=== PATIENT | male | born 1940 | race Caucasian/White ===

== ENCOUNTER 2019-04-02 07:01 | Day surgery (SDC) | payer MEDICARE, BC ==
[2019-04-01 12:21] VITALS: BMI 25.8
[2019-04-02] MEDS ORDERED: Heparin (Artline) 1,000 ML ONE (08:54)
[2019-04-02] MEDS ORDERED: Midazolam HCl 2 mg/2 ml Vial ONE (09:52)
[2019-04-02] MEDS ORDERED: Fentanyl 100 MCG/2 ML VIAL ONE (09:53)
[2019-04-02] MEDS ORDERED: hydrALAZINE 20 MG/ML VIAL ONE (11:02)
[2019-04-02] MEDS ORDERED: Iopamidol 370 76% 100 ML VIAL ONE (13:11)
--- NOTE | 2019-04-02 20:30 | CON ---
DATE OF CONSULTATION: 04/02/2019 REQUESTING PHYSICIAN: Dr. Moreno. PRIMARY CARE PHYSICIAN: Irene Blount NP CHIEF COMPLAINT: Shortness of breath and indigestion. HISTORY OF PRESENT ILLNESS: The patient is 78-year-old diabetic man with chronic atrial fibrillation. The patient complains of dyspnea on exertion. His caregiver says that he quite easily gets winded and has been like that for about 2 years. The patient upon questioning says that he has gotten short of breath all of his life and then proceeded to talk about how even in high school running track he had to run the sprint races because his breathing was not good enough to run the long-distance races. I was not able to elicit any more details about his shortness of breath or any changes in his exercise tolerance over the years. He denied any chest pain, pressure, squeezing, or discomfort, but does describe frequent indigestion. He is not able to identify any particular pattern of precipitating symptoms other than relating it to when he eats. He had a nuclear stress test that showed a large reversible defect in the inferior wall at stress. His resting EF was calculated at 52%, stress at 54%. Cardiac catheterization today demonstrated the equivalent of three-vessel coronary disease. He has diminutive circumflex with a very high diagonal that appears free of disease serving the anterolateral distribution and a very severely diseased right coronary system that supplies both the inferior wall and the posterolateral distribution. Additionally, he has serial LAD lesions. He has preserved left ventricular function. PATIENT'S PAST MEDICAL HISTORY: Significant for chronic atrial fibrillation, type 2 diabetes mellitus, hypertension, and peripheral vascular disease. MEDICATIONS: His home medications are 1. Lisinopril 40 mg a day. 2. Metformin 500 mg b.i.d. 3. Diltiazem ER 240 mg a day. 4. Lipitor 40 mg a day. 5. Protonix 40 mg a day. 6. Eliquis 10 mg b.i.d. 7. Multivitamin. 8. Vitamin D supplement. 9. A probiotic. ALLERGIES: HE DENIES ANY MEDICAL ALLERGIES. SOCIAL HISTORY: He has never smoked. FAMILY HISTORY: Significant for second-degree relatives on his mother's side with heart disease. His father of an unknown cancer. REVIEW OF SYSTEMS: Positive for dizziness. He had a syncopal episode associated with dizziness about 2-1/2 years ago at which time he was found to have bilateral carotid stenosis and underwent staged bilateral carotid endarterectomies at that time. His dizziness has remained, although he has not had any further syncopal episodes. He denies any eye, speech, facial, or extremity symptoms consistent with TIAs. He reports some drooping of his left eyelid following carotid surgery. He reports some diminished visual acuity in his left eye. He reports some shooting pain starting in his left elbow and extending along the extensor surface of his forearm on the left side that he attributes to "pinched nerve." He has a vaguely positive answer when questioning about the legs bothering him when he walks. He denies specifically crampy calf, thigh or buttock pain. He reports the aforementioned shortness of breath his entire life, but he denies orthopnea or PND. He denies any dependent edema. He reports indigestion but denies true chest pain, pressure or squeezing. PHYSICAL EXAMINATION: GENERAL: He is somewhat diogo faced. Height 5 feet 10 inches and weight is 180 pounds, heart rate 77, blood pressure 185/111. HEENT: He has no xanthelasma. NECK: No JVD. No carotid bruits. He has well-healed surgical scars paralleling his sternocleidomastoids consistent with bilateral CEAs. LUNGS: He has clear breath sounds. HEART: He has an irregularly irregular rate and rhythm without murmur. ABDOMEN: Soft and nontender. EXTREMITIES: He has a dressing in place in the right groin status post cardiac catheterization. He has bounding bilateral radial, left femoral and bilateral popliteal pulses. He has 1 to 2+ left dorsalis pedis pulse. I was not able to appreciate either posterior tibial or the right dorsalis pedis. He has some varicosities of the spidery type at the ankles. He has no clubbing, cyanosis, or edema. NEUROLOGIC: Grossly nonfocal. LABORATORY DATA: Shows a white count of 8.5, hemoglobin 15.3, hematocrit 46.1, platelets 179,000. Chemistries were normal. Glucose 142, BUN 22, creatinine 1.24 with an estimated GFR 57 in January of this year. His BUN is 39, creatinine 1.54 for an estimated GFR of 44. Hemoglobin A1c at that time was 6.5. Last summer in October his BUN was 27, creatinine 1.58 for an estimated GFR of 43. On this encounter, his calcium is 9.8, protein 6.4, albumin 4.4, bilirubin 0.8, alkaline phosphatase 67, AST 13, ALT 11, triglycerides 84, cholesterol 124, LDL 67, HDL 39. His urinalysis this past January showed 50 mg% proteinuria and although he did not tell me about any issue with kidney stones, I found a kidney stone analysis in the laboratory section. I was not able to find a chest x-ray on him or an EKG. His EKG is reported as atrial fibrillation. His cardiac catheterization shows a right-dominant system. His left main is normal. His circumflex system per se is very small with some irregularity to it, but no obviously obstructing disease. He has a very large high diagonal that functionally runs in ramus type distribution. He has an 80% or 90% lesion in the LAD in between the first septal benefits specialist recruiter and the second diagonal with the subtotaled stenosis in the origin of that bifurcated diagonal. Little beyond that, there is about a 60% LAD lesion and the LAD wraps on around the apex. The right coronary has a very high-grade ostial lesion in it. There is an 80% or 90% lesion in the midportion of the PDA and a 60% or 70% lesion prior to the bifurcation of the posterolateral system. It is a fairly well-developed system. LVEF is around 70% with LV pressure being 143/19 with an EDP of 9. IMPRESSION AND RECOMMENDATIONS: The patient is a very difficult historian. I was not able to elicit any transient ischemic attack history other than this syncopal episode he had 2 years ago prior to his endarterectomies that he acquitted with a transient ischemic attack; however, he has not had his scheduled carotid followup during that time and I think it would be worth going ahead and checking that now for no other reason than to get him re-enrolled in annual surveillance. It is difficult to point to any statistics that would categorize him as having a survival advantage to bypass surgery. However, his dyspnea on exertion, his "indigestion," his large inferior wall defect on stress testing and his right coronary anatomy all fit together and it is hard to imagine that he would not symptomatically improve with bypass surgery and have improved quality of life, even if not quantity. Of course , I cannot say that with certainty because of how well adamantly he insists he has been short of breath all of his life. My plan is to let him go ahead and restart his Eliquis now. We will recheck a carotid ultrasound at his convenience in the next week or so and then early in the new year at mutual convenience plan on coronary artery bypass grafting. Job ID: [id number]
== END 2019-04-02 13:22 | disposition home or self-care (01) ==
LOC: SDC 07:01
PROVIDERS: ATTEND Internal Medicine Cardiovascular Disease
PROC: 4A023N7 Measurement of Cardiac Sampling and Pressure, Left Heart, Percutaneous Approach (ICD-10-PCS; principal; 2019-04-02)
PROC: B2111ZZ Fluoroscopy of Multiple Coronary Arteries using Low Osmolar Contrast (ICD-10-PCS; 2019-04-02)
DX: I25.84 Coronary atherosclerosis due to calcified coronary lesion (principal); K30 Functional dyspepsia; I48.20 Chronic atrial fibrillation, unspecified; E11.9 Type 2 diabetes mellitus without complications; I10 Essential (primary) hypertension; I25.10 Atherosclerotic heart disease of native coronary artery without angina pectoris; I73.00 Raynaud's syndrome without gangrene; Z79.01 Long term (current) use of anticoagulants; Z79.84 Long term (current) use of oral hypoglycemic drugs; Z79.899 Other long term (current) drug therapy
CPT/HCPCS: 93005; 93458; C1769; 93010; 99152; J0360; J1644; J2250; J3010; Q9967

== ENCOUNTER 2019-04-20 09:54 | Outpatient (CLI) | payer MEDICARE, BC ==
--- NOTE | 2019-04-20 17:49 | RAD ---
CHEST TWO VIEWS: HISTORY: Preoperative evaluation. COMPARISON: 07/06/2015 FINDINGS: The cardiac silhouette is at the upper limits of normal in size. The pulmonary vasculature is within normal limits. Mild linear densities are seen at the right lung base, which may be related to mild at electasis versus scarring. There is no consolidation or pleural fluid appreciated. No other interval change. Surgical clips are seen at the base of the neck bilaterally. IMPRESSION: 1. No acute cardiopulmonary process. 2. Mild scarring versus atelectasis, right lung base. POS: [facility]
--- NOTE | 2019-04-21 11:11 | EKG ---
Test Reason : Blood Pressure : / mmHG Vent. Rate : 088 BPM Atrial Rate : 108 BPM P-R Int : 000 ms QRS Dur : 084 ms QT Int : 358 ms P-R-T Axes : 000 038 -20 degrees QTc Int : 433 ms Atrial fibrillation Minimal voltage criteria for LVH, may be normal variant Inferior infarct , age undetermined Cannot rule out Anterior infarct , age undetermined Abnormal ECG When compared with ECG of 02-APR-2019 08:08, (Unconfirmed) Inferior infarct is now Present Nonspecific T wave abnormality now evident in Anterior leads Confirmed by DR. Yareli ACOSTA ([id number]) on 04/21/2019 11:11:10 AM Referred By: BETH Confirmed By:DR. Yareli ACOSTA
== END 2019-04-20 09:55 | disposition home or self-care (01) ==
LOC: LABBT 09:54
PROVIDERS: ATTEND Thoracic Surgery (Cardiothoracic Vascular Surgery)
DX: Z01.818 Encounter for other preprocedural examination (principal); I25.10 Atherosclerotic heart disease of native coronary artery without angina pectoris
CPT/HCPCS: 71046; 93005; 93010

== ENCOUNTER 2019-04-20 15:30 | Inpatient (IN) | payer MEDICARE, BC ==
[2019-04-20 16:46] LABS: Hemoglobin 15.5 g/dL (14.0-18.0); Mean Corpuscular HGB CONC 32.8 g/dL (32.0-36.0); Mean Corpuscular Hemoglobin 30.5 pg (27.0-31.0); Mean Platelet Volume 9.5 fL (7.4-10.4); Platelet Count 198 thou/uL (130-400); RBC Distribution Width 12.1 % (11.5-14.5); White Blood Cell (WBC) Count 13.1 thou/uL (4.8-10.8)
[2019-04-20 17:20] LABS: Anion Gap 14 mmol/L (10-20); BUN (Urea Nitrogen) 23 mg/dL (8.4-25.7); Calc. Creatinine Clearance 0 mL/min (70-130); Calcium 9.7 mg/dL (7.8-10.44); Carbon Dioxide 28 mmol/L (23-31); Chloride 105 mmol/L (98-107); Estimated GFR-MDRD 50; Glucose 112 mg/dL (83-110); Potassium 3.8 mmol/L (3.5-5.1); Sodium 143 mmol/L (136-145)
[2019-04-21] MEDS ORDERED: Midazolam HCl 2 mg/2 ml Vial ONE (06:35)
[2019-04-21] MEDS ORDERED: Dexmedetomidine 200 MCG/2 ML VIAL ONE (06:35)
[2019-04-21] MEDS ORDERED: Fentanyl 100 MCG/2 ML VIAL ONE (06:35)
[2019-04-21] MEDS ORDERED: Phenylephrine HCL 10 MG/ML VIAL ONE (06:35)
[2019-04-21] MEDS ORDERED: Albumin 5% 500 ML ONE ×2 (06:39→07:09)
[2019-04-21] MEDS ORDERED: Heparin 10,000 UNITS/1 ML VIAL 30,000 UNITS in Sodium Chloride 0.9% 1,000 ML FS SCH (06:45)
[2019-04-21] MEDS ORDERED: Insulin Regular 300 UNITS/3 ML VIAL ONE (07:09)
[2019-04-21] MEDS ORDERED: Guaifenesin DM 100-10/5 ML UDCUP PO PRN (07:29)
[2019-04-21] MEDS ORDERED: Mag-Al 1200 mg/1200 mg/30 ML UDCUP PO PRN (07:29)
[2019-04-21] MEDS ORDERED: Bisacodyl 10 MG SUPP PR PRN (07:29)
[2019-04-21] MEDS ORDERED: hydrALAZINE 20 MG/ML VIAL SLOW IVP PRN (07:29)
[2019-04-21] MEDS ORDERED: HYDROcodone/Acetaminophen 5/325 mg Tablet PO PRN (07:29)
[2019-04-21] MEDS ORDERED: Hetastarch 6% 500 ML 500 ML IVPB PRN (07:29)
[2019-04-21] MEDS ORDERED: Post-Op Insulin Drip Protocol IVPB ONE (07:29)
[2019-04-21] MEDS ORDERED: Promethazine HCl 25 MG/ML VIAL IM PRN (07:29)
[2019-04-21] MEDS ORDERED: Bisacodyl 5 MG TAB PO PRN (07:29)
[2019-04-21] MEDS ORDERED: Fentanyl 100 MCG/2 ML VIAL SLOW IVP PRN (07:29)
[2019-04-21] MEDS ORDERED: Nitroglycerin 50 MG/250 ML BOT 250 ML IVPB PRN (07:29)
[2019-04-21] MEDS ORDERED: Morphine 2 MG/ML SYRINGE SLOW IVP PRN (07:29)
[2019-04-21] MEDS ORDERED: niCARdipine 25 MG in Sodium Chloride 0.9% 250 ML 250 ML IVPB PRN (07:29)
[2019-04-21] MEDS ORDERED: Norepinephrine 8 MG/0.9% NS 250 ML IVPB PRN (07:29)
[2019-04-21] MEDS ORDERED: Acetaminophen 325 MG TAB PO PRN (07:29)
[2019-04-21] MEDS ORDERED: Insulin Regular 300 UNITS/3 ML VIAL SC PRN (07:54)
[2019-04-21] MEDS ORDERED: HUMULIN R 100 UNITS in Sodium Chloride 0.9% 100 ML IVPB SCH (07:54)
[2019-04-21] MEDS ORDERED: Dextrose 5% in Water 1,000 ML IV PRN (07:54)
[2019-04-21] MEDS ORDERED: Dextrose 50% Abboject 50 ML SYRINGE SLOW IVP PRN (07:54)
[2019-04-21] MEDS ORDERED: Protamine Sulfate 250 MG/25 ML VIAL ONE (09:53)
[2019-04-21] MEDS ORDERED: Rocuronium Bromide 10 MG/ML (10ML VIAL) ONE (09:53)
[2019-04-21] MEDS ORDERED: Heparin 30,000 units/30 ml VIAL ONE (09:53)
[2019-04-21] MEDS ORDERED: Heparin 5,000 UNITS/ML VIAL ONE (09:53)
[2019-04-21] MEDS ORDERED: Potassium Chloride 60 MEQ/30 ML VIAL ONE (09:53)
[2019-04-21] MEDS ORDERED: Magnesium Sulfate 1 GM/2 ML VIAL ONE (09:53)
[2019-04-21] MEDS ORDERED: Cardioplegic Soln 1,000 ML BAG ONE (09:53)
[2019-04-21] MEDS ORDERED: Esmolol 100 MG/10 ML VIAL ONE (09:53)
[2019-04-21] MEDS ORDERED: Sodium Bicarb 50 MEQ/50 ML Abboject 8.4% SYRINGE ONE (09:53)
[2019-04-21] MEDS ORDERED: Papaverine 60 MG/2 ML VIAL ONE (09:53)
[2019-04-21] MEDS ORDERED: Lidocaine 1% PF 5 ML VIAL ONE (09:53)
[2019-04-21] MEDS ORDERED: ePHEDrine/0.9% NaCl/PF SYRINGE 50 mg/10 ml ONE (09:53)
[2019-04-21] MEDS ORDERED: Nitroglycerin 50 MG/250 ML BOT ONE (09:53)
[2019-04-21] MEDS ORDERED: Thrombin 5000 UNITS/5 ML VIAL ONE (09:53)
[2019-04-21] MEDS ORDERED: Lidocaine 2% PF 5 ML VIAL ONE (09:53)
[2019-04-21] MEDS ORDERED: Calcium Chloride 1 GM/10 ML Abboject SYRINGE ONE (09:53)
[2019-04-21] MEDS ORDERED: Vecuronium 10 MG VIAL ONE (09:53)
[2019-04-21] MEDS ORDERED: PROPOFOL 200 MG/20 ML VIAL ONE (09:53)
[2019-04-21] MEDS ORDERED: Aminocaproic Acid 5 GM/20 ML VIAL ONE (09:53)
[2019-04-21] MEDS: Sodium Chloride 0.9% 1,000 ML IV SCH ×2 (13:55→20:31)
--- NOTE | 2019-04-21 14:10 | RAD ---
EXAM: XR Chest 1 View Portable PROVIDED CLINICAL HISTORY: Post open heart COMPARISON: 04/20/2019 FINDINGS: Interval intubation, with tip of ET tube overlying the expected location of the thoracic inlet. Inter krystin placement of left subclavian central line, with tip overlying the expected location of cavoatrial junction. Mediastinal drains are seen. Left basilar pleural and/or parenchymal opacity. Villavicencio bsegmental atelectasis right lung base. No evidence for pneumothorax with limitations due to the supine nature the study. IMPRESSION: 1. Interval support apparatus as above. 2. Left basilar pleural and/or parenchymal opacity.
[2019-04-21 14:29] LABS: #Basophils 0.1 thou/uL (0.0-0.2); #Eosinphils 0.2 thou/uL (0.0-0.7); #Lymphocytes 2.1 thou/uL (1.20-3.40); #Monocytes 1.5 thou/uL (0.11-0.59); #Neutrophils 14.4 thou/uL (1.40-6.50); %Basophils 0.3 % (0.0-1.0); %Eosinophils 1.1 % (0.0-10.0); %Lymphocytes 11.7 % (21.0-51.0); %Monocytes 8.3 % (0.0-10.0); %Neutrophils 78.6 % (42.0-75.0); Hemoglobin 11.9 g/dL (14.0-18.0); Mean Corpuscular HGB CONC 33.4 g/dL (32.0-36.0); Mean Corpuscular Hemoglobin 30.5 pg (27.0-31.0); Mean Corpuscular Volume 91.3 fL (78.0-98.0); Mean Platelet Volume 9.7 fL (7.4-10.4); Platelet Count 119 thou/uL (130-400); RBC Distribution Width 11.8 % (11.5-14.5); White Blood Cell (WBC) Count 18.3 thou/uL (4.8-10.8)
[2019-04-21 14:33] LABS: Anion Gap 10 mmol/L (10-20); BUN (Urea Nitrogen) 18 mg/dL (8.4-25.7); Calc. Creatinine Clearance 69 mL/min (70-130); Calcium 7.7 mg/dL (7.8-10.44); Carbon Dioxide 24 mmol/L (23-31); Chloride 113 mmol/L (98-107); Estimated GFR-MDRD 70; Glucose 144 mg/dL (83-110); Sodium 143 mmol/L (136-145)
[2019-04-21 14:42] LABS: INR-International Normal Ratio 1.4; PTT 36.5 SEC (22.9-36.1)
[2019-04-21 15:01] LABS: Actual Bicarbonate (HCO3a) 19.2 mEq/L (22-28); Base Excess (BEa) -5.7 mEq/L (-2.0 to +3.0); CO2 Tension 35.8 mmHg (35.0-45.0); Carboxyhemoglobin (COHb) 0.9 gm% (0.0-3.0); Hemoglobin (Hb) 12.6 g/dL (14.0-18.0); O2 Tension (PaO2) 92.5 mmHg (> 70.0); Potassium - ABG Lab 4.11 mmol/L (3.70-5.30); pH, Arterial 7.35 (7.35-7.45)
[2019-04-21 15:02] LABS: Puncture Site ALINE
[2019-04-21] MEDS: Potassium Chloride 20 MEQ/100 ML PREMIX BAG IVPB PRN (15:48)
[2019-04-21] MEDS: Aspirin Chewable 81 MG TAB PO SCH (15:58)
[2019-04-21] MEDS: Docusate 100 MG CAP PO SCH ×2 (16:01→20:32)
[2019-04-21] MEDS: Multivitamin W/ Minerals 1 TAB PO SCH (16:02)
--- NOTE | 2019-04-21 16:31 | OP ---
DATE OF PROCEDURE: 04/21/2019 PROCEDURE PERFORMED: Coronary artery bypass grafting x4 with left internal mammary artery to the mid left anterior descending and separate reverse greater saphenous vein graft from the aorta to the second diagonal and from the aorta to the posterolateral branch of the RCA, and reverse greater saphenous vein graft from the posterolateral graft to the distal posterior descending artery. PREOPERATIVE DIAGNOSES: 1. Coronary artery disease. 2. Chronic atrial fibrillation. POSTOPERATIVE DIAGNOSES: 1. Coronary artery disease. 2. Chronic atrial fibrillation. THERAPEUTIC MASSAGE TECHNICIAN: Pedro Luis Anderson MD ANESTHESIA: General endotracheal anesthesia. INDICATIONS: The patient is a 78-year-old diabetic man with complaints of dyspnea on exertion and some nondescript complaints of dyspepsia. Nuclear stress testing showed a large inferior wall reversible defect. Cardiac catheterization demonstrated severe 2-vessel coronary artery disease. He had a diminutive circumflex system with anterolateral wall supplied by a high diagonal that was free of obstructive disease and the posterolateral wall supplied by diseased posterolateral branch. He is now taken to the operating room for revascularization. FINDINGS: Pump time 107 minutes. Cross-clamp time 43 minutes. The utilized saphenous vein was of good quality towards the mid to distal ankle. The vein though good size was thin-walled. The utilized segment of ASHER was of good quality. It was fairly small distally and at about the transition point between being a large caliber vessel in a small spastic vessel. There was apparently a localized dissection. The LAD was about a 1.5-mm vessel and good quality from there distally. The first diagonal was about a 1.5 mm with vessel scattered islands of plaque. The distal PDA was about a 1.5 mm vessel with heavy disease proximally. The posterolateral branch of the right coronary was of good quality vessel about 2 mm. The pericardium was closed. The left atrial appendage had a very broad base and was opted to not attempt ligating it. NARRATIVE REPORT: After informed consent was obtained, the patient was taken to the operating room, placed in supine position on the operating table. After the induction of general endotracheal anesthesia, the patient's greater saphenous vein in his left lower extremity was ultrasonographically mapped and marked. He was then placed in Trendelenburg and his left upper chest was prepped and draped in sterile fashion. A triple-lumen central line kit was used to place a left subclavian central line by the Seldinger technique. All 3 ports easily aspirated and flushed. The line was secured. The patient's torso, groins, and lower extremities were prepped and draped in sterile fashion. The greater saphenous vein was exposed just above the left knee. He was then endoscopically harvested from groin to about the junction in the middle and distal thirds of the lower leg using stab incisions for the proximal and distal ligation and division points. It was prepared for use as a graft and the port site at the knee was closed in layers of subcutaneous and subcuticular Vicryl. A median sternotomy was performed. The left internal mammary artery was mobilized as a skeletonized in-situ graft from lateral xiphoid to the level of the subclavian vein through an extrapleural exposure, although one small rent was made in the pleura near the level of the xiphoid. The patient was heparinized. The mammary was ligated and divided distally. There was good flow through the mammary. Papaverine solution was instilled intraluminally, and during the course of that extravasation of papaverine, it could be appreciated at about the junction of the proximal portion that had not gone into spasm in the more distal portion that had. When flow was allowed through it after that, it bled profusely. That area was cleaned up with tenotomy scissors and an attempt was made to do a primary repair that proved to be unsuccessful. Upon dividing the mammary at that level, it could be appreciated that there was a localized dissection with entry and re-entry points within just a few millimeters of each other, though somewhat short. The mammary appeared to be of adequate length to be usable as an in-situ graft. The medial reflections of the pleura were mobilized and the mammary bed inspected for hemostasis. The ASHER retractors were replaced with a Cheng retractor. The pericardium was opened and marsupialized. The aorta was palpated and was soft. A double concentric pursestring of 2-0 Ethibond was placed in ascending aorta at the pericardial reflection and a single pursestring was placed in the right atrial appendage. Aortic and venous cannulae were inserted and secured by their pursestrings. The plane between the aorta and the pulmonary artery was developed. Cardiopulmonary bypass was instituted and the patient was systemically cooled. The heart was examined and the vessels to be bypassed were identified. A longitudinal slit was made in the pericardium anterior to the left phrenic nerve, through which the mammary could be passed. An aortic cross-clamp was applied and cardioplegia was administered through an aortic root needle. When arrest was achieved, attention was turned to the left atrial appendage. Upon inspection, it was tensely distended. While it could be decompressed, it was intermediately refilled, it was a very large atrial appendage, and the base of it appeared to be very broad for much of its length perhaps as much as 3 cm. It was opted not to attempt ligation of the atrial appendage because of how broad-based it was, we fear that difficulties with passing a standard SH needle would lead to tears or needle holes that would lead to bleeding problems. Attention was then turned to the distal right coronary system. The posterolateral branch was exposed and opened just beyond an island of plaque that seemed to represent the obstructive lesion, demonstrated the arteriogram. Reverse greater saphenous vein was anastomosed their end-to-side with running Prolene suture and the anastomosis tested by flushing cold cardioplegia down the graft. Attention was then turned to the PDA. It was opened distally and grafted in a similar fashion. The second diagonal was then grafted likewise and then the LAD was exposed and opened at its mid point a little bit beyond the origin of that 2nd diagonal, where it became a reasonably good quality vessel. The mammary was anastomosed there with running 7-0 Prolene and tacked to the epicardium. The aortic cross-clamp was placed with a partial occluding clamp and 2 aortotomies were made in the ascending aorta with a scalpel and punch. The posterolateral graft was brought along the right side of the heart and anastomosed to the more proximal aortotomy and the diagonal graft was brought along the left side of the heart and anastomosed to the more distal aortotomy. Partial occluding clamp was removed and the vein grafts were de-aired. The PDA graft was distended and a point on the posterolateral graft about 3 cm or so beyond the proximal anastomosis was selected for proximal anastomosis, that segment of posterolateral graft was isolated between bulldog clamps and opened longitudinally and the posterior descending graft was anastomosed their end-to-side with running Prolene. The bulldogs were removed and the vein grafts de-aired. The anastomoses were inspected for hemostasis. The posterior pericardial drain was brought out through a separate incision and secured with suture. Right ventricular temporary epicardial pacing wires were placed. The patient was then from cardiopulmonary bypass. The aortic and venous cannulae were removed and the pursestring secured. Protamine was administered. When hemostasis was adequate, an anterior mediastinal drain was placed. The pericardium was easily closed over with running Vicryl. The cut surfaces of the sternum were treated with platelet rich GPS and vancomycin paste. The fascia was closed over the wires with running Vicryl after having irrigated the soft tissues with saline and then applied platelet poor GPS. The subcutaneous tissue was reapproximated with running 2-0 Vicryl. The skin was closed with a running 3-0 Vicryl subcuticular suture. The wounds were dressed and the patient was taken to the intensive care unit in stable condition. Job ID: [id number]
[2019-04-21] MEDS: Fentanyl 100 MCG/2 ML VIAL SLOW IVP PRN ×2 (16:55→20:47)
[2019-04-21 17:46] LABS: Actual Bicarbonate (HCO3a) 18.2 mEq/L (22-28); Base Excess (BEa) -7.5 mEq/L (-2.0 to +3.0); CO2 Tension 37.7 mmHg (35.0-45.0); Calcium, Ionized 1.09 mmol/L (1.12-1.30); Carboxyhemoglobin (COHb) 0.8 gm% (0.0-3.0); Hemoglobin (Hb) 12.1 g/dL (14.0-18.0); O2 Tension (PaO2) 117.1 mmHg (> 70.0); Potassium - ABG Lab 4.65 mmol/L (3.70-5.30)
[2019-04-21 17:48] LABS: ALV-art Gradient 120.975 (0-20); Puncture Site ALINE
[2019-04-21] MEDS ORDERED: Sodium Bicarb 50 MEQ/50 ML VIAL IVP SCH (18:15)
--- NOTE | 2019-04-21 18:27 | CON ---
DATE OF CONSULTATION: 04/21/2019 REASON FOR CONSULTATION: Status post CABG. PRIMARY APARTMENT HOTEL MANAGER: Dr. Steven Moreno. HISTORY OF PRESENT ILLNESS: Mr. Naidu is a very pleasant 78-year-old white gentleman, who comes to the hospital for a planned CABG. He is one of my patients I have been following for atrial fibrillation for many years now. He has chronic shortness of breath, but he started noticing a lot of indigestion recently, so he had a repeat stress test. He had one last in 2017, which was normal. Stress recently showed inferior ischemia, so he underwent heart catheterization that showed severe multivessel disease. He underwent CABG x4 earlier today. On my evaluation, he remains intubated, but is wide awake, following commands, on CPAP trial. Hopefully, he will get extubated pretty soon. PAST MEDICAL HISTORY: 1. Hypertension. 2. Chronic atrial fibrillation. 3. Carotid artery stenosis, status post endarterectomies in the past. 4. Peripheral vascular disease. 5. Raynaud phenomenon. 6. Coronary artery disease as above. 7. Chronic dizziness. 8. Type-2 diabetes. PAST SURGICAL HISTORY: 1. CABG x4 as above. He had a GUEVARA to the LAD. He had a separate vein graft to the second diagonal and another vein graft to the posterolateral branch of the right and Y graft from the posterolateral branch vein graft to the posterior descending artery on the right. Left atrial appendage was too large to be ligated. 2. Right ear surgery. 3. Right leg surgery. OUTPATIENT MEDICATIONS: 1. Diltiazem 240 mg a day. 2. Eliquis 5 mg b.i.d. 3. Pantoprazole 40 mg a day. 4. Lisinopril 40 mg a day. 5. Metformin 500 mg b.i.d. 6. Atorvastatin 40 mg at bedtime. ALLERGIES: NO KNOWN DRUG ALLERGIES. FAMILY HISTORY: No early coronary artery disease. SOCIAL HISTORY: Some alcohol use. No tobacco or drug use. REVIEW OF SYSTEMS: Review of systems is unobtainable as the patient is currently intubated. PHYSICAL EXAMINATION: VITAL SIGNS: Temperature 97.7, pulse 65, respiratory rate 24, saturating 99% on 24% FiO2. GENERAL: Awake and alert, intubated, following commands. HEENT: Normocephalic, atraumatic. NECK: Supple. LUNGS: Clear. CARDIOVASCULAR: S1, S2. No S3 or S4. There is a three-component rub. ABDOMEN: Soft. Positive bowel sounds. EXTREMITIES: Trace edema. SKIN: Warm and dry. LABORATORY DATA: Laboratory work was reviewed. CBC, coags, ABG, and chemistries were all reviewed. ASSESSMENT: 1. Multivessel coronary artery disease. 2. Status post CABG x4 as above. 3. Type-2 diabetes. 4. Hyperlipidemia. 5. Hypertension. 6. Chronic atrial fibrillation. PLAN: 1. Unable to do left atrial appendage ligation, given too large based left atrial appendage. We will need to continue Eliquis chronically. 2. Continue postoperative care. 3. Hopefully, will get extubated pretty soon as he is doing very well with his CPAP trial. 4. Aspirin and statin for life. 5. Beta-malcom and JACKSON inhibitor once blood pressure allows in the next few days. Thank you for letting us participate in the care of your patient. We will follow. Job ID: [id number]
[2019-04-21 19:52] LABS: Hemoglobin 10.9 g/dL (14.0-18.0)
[2019-04-21 20:05] LABS: Potassium 4.6 mmol/L (3.5-5.1)
[2019-04-21] MEDS: Atorvastatin Calcium 40 MG TAB PO SCH (20:32)
[2019-04-21] MEDS: Lactinex Tablet PO SCH (20:33)
[2019-04-21] MEDS: HYDROcodone/Acetaminophen 5/325 mg Tablet PO PRN (21:32)
[2019-04-21] MEDS: Ondansetron PF 4 MG/2 ML Vial IVP PRN (21:32)
[2019-04-22] MEDS: Fentanyl 100 MCG/2 ML VIAL SLOW IVP PRN ×4 (00:28→23:05)
[2019-04-22] MEDS: Sodium Chloride 0.9% 1,000 ML IV SCH (02:20)
[2019-04-22 03:22] LABS: #Lymphocytes 1.1 thou/uL (1.20-3.40); #Monocytes 1.6 thou/uL (0.11-0.59); #Neutrophils 8.3 thou/uL (1.40-6.50); %Basophils 0.3 % (0.0-1.0); %Eosinophils 0.1 % (0.0-10.0); %Monocytes 14.5 % (0.0-10.0); %Neutrophils 75.2 % (42.0-75.0); Hemoglobin 10.6 g/dL (14.0-18.0); Mean Corpuscular HGB CONC 33.8 g/dL (32.0-36.0); Mean Corpuscular Volume 91.9 fL (78.0-98.0); Mean Platelet Volume 9.5 fL (7.4-10.4); Platelet Count 107 thou/uL (130-400); RBC Distribution Width 11.9 % (11.5-14.5)
[2019-04-22 03:41] LABS: Anion Gap 10 mmol/L (10-20); BUN (Urea Nitrogen) 21 mg/dL (8.4-25.7); Calc. Creatinine Clearance 67 mL/min (70-130); Calcium 7.8 mg/dL (7.8-10.44); Carbon Dioxide 26 mmol/L (23-31); Chloride 112 mmol/L (98-107); Estimated GFR-MDRD 68; Glucose 113 mg/dL (83-110); Sodium 144 mmol/L (136-145)
[2019-04-22] MEDS: Potassium Chloride 20 MEQ/100 ML PREMIX BAG IVPB PRN (03:56)
[2019-04-22] MEDS ORDERED: Dextrose 50 % In Water 50 ML SYRINGE IV PRN (06:48)
[2019-04-22] MEDS ORDERED: Dextrose 5% in Water 1,000 ML IV PRN ×2 (06:48→07:30)
[2019-04-22] MEDS ORDERED: Artificial Tears 18 DROP/0.9 ML EA EYE PRN (07:26)
[2019-04-22] MEDS ORDERED: Mag-Al 1200 mg/1200 mg/30 ML UDCUP PO PRN (07:26)
[2019-04-22] MEDS ORDERED: Guaifenesin DM 100-10/5 ML UDCUP PO PRN (07:26)
[2019-04-22] MEDS ORDERED: Zolpidem Tartrate 5 MG TAB PO PRN (07:26)
[2019-04-22] MEDS ORDERED: diphenhydrAMINE 25 MG CAP PO PRN (07:26)
[2019-04-22] MEDS ORDERED: Bisacodyl 10 MG SUPP PR PRN (07:26)
[2019-04-22] MEDS ORDERED: Mineral Oil ENEMA PR PRN (07:26)
[2019-04-22] MEDS ORDERED: Dextrose 50% Abboject 50 ML SYRINGE IVP PRN (07:30)
[2019-04-22] MEDS ORDERED: Insulin Regular 300 UNITS/3 ML VIAL SC PRN (07:30)
[2019-04-22] MEDS: HYDROcodone/Acetaminophen 5/325 mg Tablet PO PRN (07:58)
--- NOTE | 2019-04-22 07:59 | RAD ---
Chest one view HISTORY: Heart surgery. Follow-up. COMPARISON: 04/21/2019. FINDINGS: Cardiac silhouette is magnified and enlarged. Pulmonary vasculature remains slightly engorg ed. Postoperative atelectasis at the left base and scattered patchy areas of very subtle parenchymal opacity are similar in appearance to the previous exam. Mediastinum is midline with posto perative changes. Left subclavian central venous catheter remains in place. Endotracheal catheter no longer visible. No evidence of pneumothorax. Mediastinal drains in place. pvc monitor leads ov erlie the chest. IMPRESSION: Extubation. Otherwise stable postoperative appearance of the chest.
[2019-04-22] MEDS: Furosemide 40 MG TAB PO SCH ×2 (08:00→14:30)
[2019-04-22] MEDS: Docusate 100 MG CAP PO SCH ×2 (08:01→20:01)
[2019-04-22] MEDS: Multivitamin W/ Minerals 1 TAB PO SCH ×2 (08:01→08:11)
[2019-04-22] MEDS: Aspirin Chewable 81 MG TAB PO SCH (08:01)
[2019-04-22] MEDS: Ondansetron PF 4 MG/2 ML Vial IVP PRN ×3 (09:15→21:06)
[2019-04-22] MEDS: Amiodarone 450 MG, Admixture Fee 1 EACH in Dextrose 5% in Water 250 ML IVPB SCH ×2 (10:41→16:50)
[2019-04-22] MEDS ORDERED: Furosemide 40 MG/4 ML VIAL SLOW IVP SCH (10:45)
[2019-04-22] MEDS ORDERED: Fentanyl 100 MCG/2 ML VIAL SLOW IVP PRN ×2 (15:09→15:25)
--- NOTE | 2019-04-22 18:01 | PDOC.CPN ---
- Subjective Date: 04/22/19 Time: 17:58 Interval history: He became SOB this morning and we gave a dose of IV Lasix and he diuresed very well and felt better. His afib also went RVR and had to be started on amiodarone drip with better rate control. He is having a hard time moving secretions. He is having a lot more pain on neck and shoulders which is a chronic pain for him. - Review of Systems General: denies: fever/chills, weight/appetite/sleep changes, night sweats, fatigue Respiratory: reports: cough, shortness of breath. denies: congestion, exercise intolerance Cardiovascular: reports: edema. denies: chest pain, palpitation, paroxysmal nocturnal dyspnea, orthopnea Gastrointestinal: denies: nausea, vomiting, diarrhea, constipation, abd pain, GI bleeding Musculoskeletal: reports: pain. denies: tenderness, stiffness, swelling, arthritis/arthralgias Neurological: denies: numbness, syncope, seizure, weakness - Objective Allergies/Adverse Reactions: Allergies Allergy/AdvReac Type Severity Reaction Status Date / Time No Known Allergies Allergy Verified 04/20/19 15:43 Visit Medications: Current Medications Hydrocodone Bitart/Acetaminophen ([place] 5/325) 1 tab PO Q4H PRN PRN Reason: Moderate Pain (4-6) Hydrocodone Bitart/Acetaminophen ([place] 5/325) 2 tab PO Q4H PRN PRN Reason: Severe Pain (7-10) Last Admin: 04/22/19 07:58 Dose: 2 tab Acidophilus (Floranex) 1 tab PO [facility] Last Admin: 04/21/19 20:33 Dose: Not Given Al Hydroxide/Mg Hydroxide (Maalox) 30 ml PO Q4H PRN PRN Reason: Indigestion Albuterol/Ipratropium (Duoneb) 3 ml NEB Q6H PRN PRN Reason: SHORTNESS OF BREATH Artificial Tears (Tears Naturale) 0 drop EA EYE PRN PRN PRN Reason: Dry Eyes Aspirin (Aspirin Chewable) 81 mg PO DAILY [facility] Last Admin: 04/22/19 08:01 Dose: 81 mg Atorvastatin Calcium (Lipitor) 40 mg PO HS [facility] Last Admin: 04/21/19 20:32 Dose: Not Given Bisacodyl (Dulcolax) 10 mg PO Q12H PRN PRN Reason: Constipation Bisacodyl (Dulcolax) 10 mg UT Q12H PRN PRN Reason: Constipation Cholecalciferol (Vitamin D3) 3,000 units PO DAILY [facility] Last Admin: 04/22/19 08:01 Dose: 3,000 units Dextrose/Water (Dextrose 50%) 25 gm IVP PRN PRN PRN Reason: HYPOGLYCEMIA PROTOCOL Diphenhydramine HCl (Benadryl) 25 mg PO Q6H PRN PRN Reason: Itching & Insomnia or Xiang Compa Docusate Sodium (Colace) 100 mg PO BID [facility] Last Admin: 04/22/19 08:01 Dose: 100 mg Fentanyl (Sublimaze) 25 mcg SLOW IVP Q2H PRN PRN Reason: Moderate Pain (4-6) Fentanyl (Sublimaze) 50 mcg SLOW IVP Q2H PRN PRN Reason: Severe Pain (7-10) Last Admin: 04/22/19 15:48 Dose: 50 mcg Furosemide (Lasix) 40 mg SLOW IVP DAILY [facility] Glucagon (Glucagon) 1 mg IM PRN PRN PRN Reason: HYPOGLYCEMIA PROTOCOL Guaifenesin/Dextromethorphan (Robitussin Dm) 15 ml PO Q4H PRN PRN Reason: Cough Dextrose/Water (D5w) 1,000 mls @ 0 mls/hr IV INF PRN PRN Reason: HYPOGLYCEMIA PROTOCOL Amiodarone HCl 450 mg/Miscellaneous Medication 1 each/ Dextrose/Water 259 mls @ 0 mls/hr IVPB INF [facility]; Protocol Last Admin: 04/22/19 16:50 Dose: 259 mls Insulin Human Regular (Humulin R) 0 units SC .MODERATE SLIDING SC PRN; Protocol PRN Reason: MODERATE SLIDING SCALE Iron/Minerals/Multivitamins (Theragran M) 1 tab PO DAILY [facility] Last Admin: 04/22/19 08:11 Dose: Not Given Metoclopramide HCl (Reglan) 10 mg IVP Q6HR [facility] Stop: 04/23/19 12:01 Mineral Oil (Fleet Mineral Oil) 133 ml [place] DAILYPRN PRN PRN Reason: Constipation Ondansetron HCl (Zofran) 4 mg IVP Q6H PRN PRN Reason: Nausea/Vomiting Last Admin: 04/22/19 14:27 Dose: 4 mg Pantoprazole Sodium (Protonix) 40 mg PO DAILY [facility] Last Admin: 04/22/19 08:01 Dose: 40 mg Sodium Chloride (Flush - Normal Saline) 10 ml IVF Q12HR [facility] Last Admin: 04/22/19 08:05 Dose: 10 ml Zolpidem Tartrate (Ambien) 5 mg PO HSPRN PRN PRN Reason: Insomnia Vital Signs & Weight: Vital Signs Temp Pulse Pulse BP BP Pulse Ox Pulse Ox 04/22/19 11:50 97 04/22/19 11:00 98.8 F 04/22/19 09:05 120 H 130 H 111/69 116/63 92 L 04/22/19 07:50 97 04/22/19 07:00 98.7 F Pulse Ox 04/22/19 11:50 04/22/19 11:00 04/22/19 09:05 96 04/22/19 07:50 04/22/19 07:00 Weight 182 lb 5.156 oz - Physical Exam General: alert & oriented x3 HEENT: mucus membranes moist Neck: supple neck Cardiac: irregularly regular Lungs: normal breath sounds Neuro: grossly intact Abdomen: active bowel sounds Extremities: 1+ LE edema Skin: clear Musculoskeletal: pain in joint - Labs Result Diagrams: 04/22/19 03:00 04/22/19 03:00 - Telemetry Supraventricular conduction: atrial fibrillation - Assessment/Plan Assessment/Plan: 1. Multivessel CAD 2. S/P CABG x 4 3. Chronic afib 4. PVD 5. Chornic dizziness. 6. Type 2 DM 7. Raynaud's Phenomenon PLAN: - Amiodarone drip per protocol to slow afib down - Increase pulmonary toilet. - IV lasix daily - Zofran IV PRN. - Will follow. - Critical Care Time Critical care time (mins): 30
[2019-04-22] MEDS: Metoclopramide HCl 10 MG/2 ML VIAL IVP SCH ×2 (18:17→23:04)
[2019-04-22] MEDS: Lactinex Tablet PO SCH (20:01)
[2019-04-22] MEDS: Atorvastatin Calcium 40 MG TAB PO SCH (20:01)
[2019-04-23] MEDS: Diltiazem HCl 125 MG, Admixture Fee 1 EACH in Sodium Chloride 0.9% 100 ML IVPB SCH ×3 (00:29→23:50)
[2019-04-23] MEDS: Metoclopramide HCl 10 MG/2 ML VIAL IVP SCH ×2 (05:21→11:54)
[2019-04-23 06:06] LABS: Band 7 % (5-11); Eosinophils 1 % (0-10); Hemoglobin 11.3 g/dL (14.0-18.0); Lymphocytes 6 % (21-51); MDiff Complete? YES; Mean Corpuscular HGB CONC 32.5 g/dL (32.0-36.0); Mean Corpuscular Hemoglobin 30.5 pg (27.0-31.0); Mean Corpuscular Volume 93.8 fL (78.0-98.0); Mean Platelet Volume 9.6 fL (7.4-10.4); Monocytes 12 % (0-10); Neutrophil 73 % (42-75); Platelet Count 136 thou/uL (130-400); Reactive Lymphocytes 1 % (0-10); White Blood Cell (WBC) Count 20.6 thou/uL (4.8-10.8)
[2019-04-23 06:07] LABS: Anion Gap 9 mmol/L (10-20); BUN (Urea Nitrogen) 21 mg/dL (8.4-25.7); Calc. Creatinine Clearance 56 mL/min (70-130); Calcium 8.3 mg/dL (7.8-10.44); Carbon Dioxide 33 mmol/L (23-31); Chloride 103 mmol/L (98-107); Estimated GFR-MDRD 54; Glucose 171 mg/dL (83-110); Potassium 4.1 mmol/L (3.5-5.1); Sodium 141 mmol/L (136-145)
[2019-04-23] MEDS ORDERED: ACETAMINOPHEN IVPB SCH (07:30)
--- NOTE | 2019-04-23 08:32 | PDOC.CPN ---
- Subjective Date: 04/23/19 Time: 08:30 Interval history: He is doing better as he had his chest tubes taken out this morning, pain better controlled. He had to be started on diltiazem drip overnight as his HR was not coming down. He still has issues with getting secretions out. - Review of Systems General: denies: fever/chills, weight/appetite/sleep changes, night sweats, fatigue Respiratory: reports: cough, shortness of breath. denies: congestion, exercise intolerance Cardiovascular: reports: chest pain. denies: palpitation, edema, paroxysmal nocturnal dyspnea, orthopnea Gastrointestinal: denies: nausea, vomiting, diarrhea, constipation, abd pain, GI bleeding Musculoskeletal: denies: pain, tenderness, stiffness, swelling, arthritis/ arthralgias Neurological: denies: numbness, syncope, seizure, weakness - Objective Allergies/Adverse Reactions: Allergies Allergy/AdvReac Type Severity Reaction Status Date / Time No Known Allergies Allergy Verified 04/20/19 15:43 Visit Medications: Current Medications Hydrocodone Bitart/Acetaminophen ([place] 5/325) 1 tab PO Q4H PRN PRN Reason: Moderate Pain (4-6) Hydrocodone Bitart/Acetaminophen ([place] 5/325) 2 tab PO Q4H PRN PRN Reason: Severe Pain (7-10) Last Admin: 04/22/19 07:58 Dose: 2 tab Acidophilus (Floranex) 1 tab PO HS [facility] Last Admin: 04/22/19 20:01 Dose: Not Given Al Hydroxide/Mg Hydroxide (Maalox) 30 ml PO Q4H PRN PRN Reason: Indigestion Albuterol/Ipratropium (Duoneb) 3 ml NEB Q6H PRN PRN Reason: SHORTNESS OF BREATH Albuterol/Ipratropium (Duoneb) 3 ml NEB [id number] [facility] Artificial Tears (Tears Naturale) 0 drop EA EYE PRN PRN PRN Reason: Dry Eyes Aspirin (Aspirin Chewable) 81 mg PO DAILY [facility] Last Admin: 04/22/19 08:01 Dose: 81 mg Atorvastatin Calcium (Lipitor) 40 mg PO HS [facility] Last Admin: 04/22/19 20:01 Dose: Not Given Bisacodyl (Dulcolax) 10 mg PO Q12H PRN PRN Reason: Constipation Bisacodyl (Dulcolax) 10 mg [place] Q12H PRN PRN Reason: Constipation Cholecalciferol (Vitamin D3) 3,000 units PO DAILY [facility] Last Admin: 04/22/19 08:01 Dose: 3,000 units Dextrose/Water (Dextrose 50%) 25 gm IVP PRN PRN PRN Reason: HYPOGLYCEMIA PROTOCOL Diphenhydramine HCl (Benadryl) 25 mg PO Q6H PRN PRN Reason: Itching & Insomnia or Xiang Compa Docusate Sodium (Colace) 100 mg PO BID [facility] Last Admin: 04/22/19 20:01 Dose: Not Given Fentanyl (Sublimaze) 25 mcg SLOW IVP Q2H PRN PRN Reason: Moderate Pain (4-6) Fentanyl (Sublimaze) 50 mcg SLOW IVP Q2H PRN PRN Reason: Severe Pain (7-10) Last Admin: 04/22/19 23:05 Dose: 50 mcg Furosemide (Lasix) 40 mg SLOW IVP DAILY [facility] Glucagon (Glucagon) 1 mg IM PRN PRN PRN Reason: HYPOGLYCEMIA PROTOCOL Guaifenesin (Mucinex) 1,200 mg PO Q12HR [facility] Guaifenesin/Dextromethorphan (Robitussin Dm) 15 ml PO Q4H PRN PRN Reason: Cough Dextrose/Water (D5w) 1,000 mls @ 0 mls/hr IV INF PRN PRN Reason: HYPOGLYCEMIA PROTOCOL Amiodarone HCl 450 mg/Miscellaneous Medication 1 each/ Dextrose/Water 259 mls @ 0 mls/hr IVPB INF [facility]; Protocol Last Admin: 04/22/19 16:50 Dose: 259 mls Diltiazem HCl 125 mg/Miscellaneous Medication 1 each/ Sodium Chloride 125 mls @ 5 mls/hr IVPB INF [facility]; Protocol Last Admin: 04/23/19 00:29 Dose: 125 mls Acetaminophen 1,000 mg/ (Syringe) 100 mls @ 0 mls/hr IVPB ONE [facility] Insulin Human Regular (Humulin R) 0 units SC .MODERATE SLIDING SC PRN; Protocol PRN Reason: MODERATE SLIDING SCALE Last Admin: 04/23/19 05:24 Dose: 2 unit Iron/Minerals/Multivitamins (Theragran M) 1 tab PO DAILY [facility] Last Admin: 04/22/19 08:11 Dose: Not Given Metoclopramide HCl (Reglan) 10 mg IVP Q6HR [facility] Stop: 04/23/19 12:01 Last Admin: 04/23/19 05:21 Dose: 10 mg Mineral Oil (Fleet Mineral Oil) 133 ml [place] DAILYPRN PRN PRN Reason: Constipation Ondansetron HCl (Zofran) 4 mg IVP Q6H PRN PRN Reason: Nausea/Vomiting Last Admin: 04/22/19 21:06 Dose: 4 mg Pantoprazole Sodium (Protonix) 40 mg PO DAILY [facility] Last Admin: 04/22/19 08:01 Dose: 40 mg Sodium Chloride (Flush - Normal Saline) 10 ml IVF Q12HR [facility] Last Admin: 04/22/19 20:36 Dose: 10 ml Zolpidem Tartrate (Ambien) 5 mg PO HSPRN PRN PRN Reason: Insomnia Vital Signs & Weight: Vital Signs Temp Pulse Ox 04/23/19 08:29 100 04/23/19 03:00 98.9 F 04/23/19 01:53 96 04/22/19 23:00 98.5 F Weight 176 lb 12.972 oz - Physical Exam General: alert & oriented x3 HEENT: mucus membranes moist Neck: supple neck Cardiac: regular rate and rhythm Lungs: scattered rhonchi Neuro: grossly intact Abdomen: active bowel sounds Extremities: 1+ LE edema Skin: clear Musculoskeletal: no pain - Labs Result Diagrams: 04/23/19 05:27 04/23/19 05:27 - Telemetry Supraventricular conduction: atrial fibrillation - Assessment/Plan Assessment/Plan: 1. Multivessel CAD 2. S/P CABG x 4 3. Chronic afib 4. PVD 5. Chornic dizziness. 6. Type 2 DM 7. Raynaud's Phenomenon PLAN: - Will strop amiodarone gtt and switch to PO and continue diltiazem gtt, . - Will add nebs to help move secretions. - Continue IV lasix daily until nausea better. - Will follow.
[2019-04-23] MEDS: HYDROcodone/Acetaminophen 5/325 mg Tablet PO PRN ×2 (08:40→23:05)
[2019-04-23] MEDS: Amiodarone 200 MG TAB PO SCH ×2 (09:00→20:23)
[2019-04-23] MEDS ORDERED: Furosemide 40 MG/4 ML VIAL SLOW IVP SCH (09:00)
[2019-04-23] MEDS: guaiFENesin ER 600 MG TAB PO SCH ×2 (09:01→20:22)
[2019-04-23] MEDS: Docusate 100 MG CAP PO SCH ×2 (09:01→20:22)
[2019-04-23] MEDS: Multivitamin W/ Minerals 1 TAB PO SCH (09:01)
[2019-04-23] MEDS: Aspirin Chewable 81 MG TAB PO SCH (09:01)
--- NOTE | 2019-04-23 09:26 | RAD ---
FRONTAL RADIOGRAPH CHEST: DATE: 04/23/2019. COMPARISON: 04/22/2019. HISTORY: Evaluate chest following CABG. FINDINGS: There is focal pleural and parenchymal opacity in the left base, nonspecific. Stable left-sided vasc ular catheter and midline sternotomy wires. Heart and mediastinal contours are stable. Right lung i s clear. Two postsurgical drainage catheters overlie the cardiophrenic angle on the left. IMPRESSION: Nonspecific pleural and parenchymal opacity in the left base. Postoperative changes as described abo ve. Followup recommended. POS: DIANA
[2019-04-23] MEDS: Ondansetron PF 4 MG/2 ML Vial IVP PRN ×2 (10:19→15:44)
[2019-04-23] MEDS ORDERED: Promethazine HCl 12.5 MG in Sodium Chloride 0.9% 50 ML IVPB PRN (16:31)
[2019-04-23] MEDS ORDERED: Haloperidol Lactate 5 MG/ML VIAL SLOW IVP PRN (16:35)
[2019-04-23] MEDS: Lactated Ringer's 1,000 ML IV SCH (20:13)
[2019-04-23] MEDS: Lactinex Tablet PO SCH (20:22)
[2019-04-23] MEDS: Atorvastatin Calcium 40 MG TAB PO SCH (20:22)
[2019-04-24] MEDS: Lactated Ringer's 1,000 ML IV SCH (02:27)
[2019-04-24 03:59] LABS: #Eosinphils 0.2 thou/uL (0.0-0.7); #Lymphocytes 2.4 thou/uL (1.20-3.40); #Monocytes 1.4 thou/uL (0.11-0.59); #Neutrophils 7.3 thou/uL (1.40-6.50); %Basophils 0.4 % (0.0-1.0); %Eosinophils 1.7 % (0.0-10.0); %Lymphocytes 21.2 % (21.0-51.0); %Monocytes 12.6 % (0.0-10.0); %Neutrophils 64.1 % (42.0-75.0); Hemoglobin 9.9 g/dL (14.0-18.0); Mean Corpuscular HGB CONC 32.7 g/dL (32.0-36.0); Mean Corpuscular Hemoglobin 30.6 pg (27.0-31.0); Mean Corpuscular Volume 93.6 fL (78.0-98.0); Mean Platelet Volume 9.3 fL (7.4-10.4); Platelet Count 110 thou/uL (130-400); Red Blood Cell (RBC) Count 3.23 mill/uL (4.70-6.10); White Blood Cell (WBC) Count 11.3 thou/uL (4.8-10.8)
[2019-04-24 04:16] LABS: Anion Gap 10 mmol/L (10-20); BUN (Urea Nitrogen) 26 mg/dL (8.4-25.7); Calc. Creatinine Clearance 60 mL/min (70-130); Calcium 8.1 mg/dL (7.8-10.44); Carbon Dioxide 31 mmol/L (23-31); Chloride 103 mmol/L (98-107); Estimated GFR-MDRD 61; Glucose 135 mg/dL (83-110); Potassium 3.9 mmol/L (3.5-5.1); Sodium 140 mmol/L (136-145)
[2019-04-24] MEDS: HYDROcodone/Acetaminophen 5/325 mg Tablet PO PRN ×2 (05:55→20:23)
[2019-04-24 06:33] VITALS: BMI 25.5
[2019-04-24] MEDS: Metoclopramide HCl 10 MG/2 ML VIAL IVP SCH ×3 (07:35→20:22)
[2019-04-24] MEDS: Amiodarone 200 MG TAB PO SCH ×2 (07:36→20:18)
[2019-04-24] MEDS: Docusate 100 MG CAP PO SCH ×2 (07:36→20:18)
[2019-04-24] MEDS: guaiFENesin ER 600 MG TAB PO SCH ×2 (07:36→20:18)
[2019-04-24] MEDS: Aspirin Chewable 81 MG TAB PO SCH (07:36)
[2019-04-24] MEDS: Multivitamin W/ Minerals 1 TAB PO SCH (07:37)
--- NOTE | 2019-04-24 08:28 | RAD ---
Portable frontal chest radiograph: 04/24/2019 COMPARISON: 04/23/2019 HISTORY: Evaluate chest following CABG FINDINGS: There is persistent dense opacity in the left perihilar region and left lung base with obsc uration of left heart border and the left hemidiaphragm suggesting nonspecific left lower lobe consolidation/collapse and probable associated left pleural effusion. Stable midline sternotomy wires , surgical clips in the neck, and left-sided vascular catheter. Right lung appears clear. IMPRESSION: Stable appearance of the chest as detailed above.
--- NOTE | 2019-04-24 14:00 | PDOC.CPN ---
- Subjective Date: 04/24/19 Time: 13:58 Interval history: He is doing much better. He is able to move his secretions better. - Review of Systems General: denies: fever/chills, weight/appetite/sleep changes, night sweats, fatigue Respiratory: reports: cough. denies: congestion, shortness of breath, exercise intolerance Cardiovascular: denies: chest pain, palpitation, edema, paroxysmal nocturnal dyspnea, orthopnea Gastrointestinal: denies: nausea, vomiting, diarrhea, constipation, abd pain, GI bleeding Musculoskeletal: denies: pain, tenderness, stiffness, swelling, arthritis/ arthralgias Neurological: denies: numbness, syncope, seizure, weakness - Objective Allergies/Adverse Reactions: Allergies Allergy/AdvReac Type Severity Reaction Status Date / Time No Known Allergies Allergy Verified 04/20/19 15:43 Visit Medications: Current Medications Hydrocodone Bitart/Acetaminophen ([place] 5/325) 1 tab PO Q4H PRN PRN Reason: Moderate Pain (4-6) Hydrocodone Bitart/Acetaminophen ([place] 5/325) 2 tab PO Q4H PRN PRN Reason: Severe Pain (7-10) Last Admin: 04/24/19 05:55 Dose: 2 tab Acidophilus (Floranex) 1 tab PO [facility] Last Admin: 04/23/19 20:22 Dose: 1 tab Al Hydroxide/Mg Hydroxide (Maalox) 30 ml PO Q4H PRN PRN Reason: Indigestion Albuterol/Ipratropium (Duoneb) 3 ml NEB Q6H PRN PRN Reason: SHORTNESS OF BREATH Albuterol/Ipratropium (Duoneb) 3 ml NEB [id number] [facility] Last Admin: 04/24/19 13:35 Dose: 3 ml Amiodarone HCl (Cordarone) 200 mg PO BID [facility] Last Admin: 04/24/19 07:36 Dose: 200 mg Artificial Tears (Tears Naturale) 0 drop EA EYE PRN PRN PRN Reason: Dry Eyes Aspirin (Aspirin Chewable) 81 mg PO DAILY [facility] Last Admin: 04/24/19 07:36 Dose: 81 mg Atorvastatin Calcium (Lipitor) 40 mg PO HS [facility] Last Admin: 04/23/19 20:22 Dose: 40 mg Bisacodyl (Dulcolax) 10 mg PO Q12H PRN PRN Reason: Constipation Bisacodyl (Dulcolax) 10 mg MS Q12H PRN PRN Reason: Constipation Cholecalciferol (Vitamin D3) 3,000 units PO DAILY [facility] Last Admin: 04/24/19 07:36 Dose: 3,000 units Dextrose/Water (Dextrose 50%) 25 gm IVP PRN PRN PRN Reason: HYPOGLYCEMIA PROTOCOL Diphenhydramine HCl (Benadryl) 25 mg PO Q6H PRN PRN Reason: Itching & Insomnia or Xiang Compa Docusate Sodium (Colace) 100 mg PO BID [facility] Last Admin: 04/24/19 07:36 Dose: 100 mg Fentanyl (Sublimaze) 25 mcg SLOW IVP Q2H PRN PRN Reason: Moderate Pain (4-6) Fentanyl (Sublimaze) 50 mcg SLOW IVP Q2H PRN PRN Reason: Severe Pain (7-10) Last Admin: 04/22/19 23:05 Dose: 50 mcg Glucagon (Glucagon) 1 mg IM PRN PRN PRN Reason: HYPOGLYCEMIA PROTOCOL Guaifenesin (Mucinex) 1,200 mg PO Q12HR [facility] Last Admin: 04/24/19 07:36 Dose: 1,200 mg Guaifenesin/Dextromethorphan (Robitussin Dm) 15 ml PO Q4H PRN PRN Reason: Cough Haloperidol Lactate (Haldol) 1 mg SLOW IVP Q6H PRN PRN Reason: Nausea Dextrose/Water (D5w) 1,000 mls @ 0 mls/hr IV INF PRN PRN Reason: HYPOGLYCEMIA PROTOCOL Diltiazem HCl 125 mg/Miscellaneous Medication 1 each/ Sodium Chloride 125 mls @ 5 mls/hr IVPB INF [facility]; Protocol Last Admin: 04/23/19 23:50 Dose: 125 mls Promethazine HCl 12.5 mg/ (Sodium Chloride) 50.5 mls @ 202 mls/hr IVPB Q6H PRN PRN Reason: Nausea Last Admin: 04/23/19 20:22 Dose: 50.5 mls Insulin Human Regular (Humulin R) 0 units SC .MODERATE SLIDING SC PRN; Protocol PRN Reason: MODERATE SLIDING SCALE Last Admin: 04/23/19 05:24 Dose: 2 unit Iron/Minerals/Multivitamins (Theragran M) 1 tab PO DAILY [facility] Last Admin: 04/24/19 07:37 Dose: 1 tab Metoclopramide HCl (Reglan) 10 mg IVP 0200,0800,1400,2000 [facility] Stop: 04/25/19 02:01 Last Admin: 04/24/19 07:35 Dose: 10 mg Mineral Oil (Fleet Mineral Oil) 133 ml [place] DAILYPRN PRN PRN Reason: Constipation Ondansetron HCl (Zofran) 4 mg IVP Q6H PRN PRN Reason: Nausea/Vomiting Last Admin: 04/23/19 15:44 Dose: 4 mg Pantoprazole Sodium (Protonix) 40 mg PO DAILY [facility] Last Admin: 04/24/19 07:37 Dose: 40 mg Sodium Chloride (Flush - Normal Saline) 10 ml IVF Q12HR [facility] Last Admin: 04/24/19 07:37 Dose: 10 ml Zolpidem Tartrate (Ambien) 5 mg PO HSPRN PRN PRN Reason: Insomnia Vital Signs & Weight: Vital Signs Temp Pulse Pulse Pulse Resp BP BP 04/24/19 13:35 91 15 04/24/19 09:05 113 H 96 133/81 130/68 04/24/19 08:00 98.3 F 04/24/19 07:09 04/24/19 07:07 92 16 04/24/19 04:00 98.3 F Pulse Ox Pulse Ox Pulse Ox 04/24/19 13:35 99 04/24/19 09:05 96 99 04/24/19 08:00 97 04/24/19 07:09 99 04/24/19 07:07 99 04/24/19 04:00 Weight 178 lb 5.663 oz - Physical Exam General: alert & oriented x3 Cardiac: irregularly regular Lungs: normal breath sounds Neuro: grossly intact Abdomen: active bowel sounds Extremities: 1+ LE edema Skin: clear Musculoskeletal: no pain - Labs Result Diagrams: 04/24/19 03:48 04/24/19 03:48 - Telemetry Supraventricular conduction: atrial fibrillation - Assessment/Plan Assessment/Plan: 1. Multivessel CAD 2. S/P CABG x 4 3. Chronic afib 4. PVD 5. Chornic dizziness. 6. Type 2 DM 7. Raynaud's Phenomenon PLAN: - Increase diltiazem drip to 10 for better rate control. - Continue nebs to help secretions. - Switch to PO lasix as needed. - Will follow.
[2019-04-24] MEDS: Bisacodyl 5 MG TAB PO PRN (14:38)
--- NOTE | 2019-04-24 15:17 | EKG ---
Test Reason : POST CABG Blood Pressure : / mmHG Vent. Rate : 065 BPM Atrial Rate : 065 BPM P-R Int : 226 ms QRS Dur : 088 ms QT Int : 468 ms P-R-T Axes : 094 001 -41 degrees QTc Int : 486 ms Sinus rhythm with marked sinus arrhythmia with 1st degree A-V block Low voltage QRS [place] lateral ischemia Prolonged QT Abnormal ECG When compared with ECG of 20-APR-2019 16:16, Sinus rhythm has replaced Atrial fibrillation Minimal criteria for Anterior infarct are no longer Present Criteria for Inferior infarct are no longer Present T wave inversion more evident in Anterolateral leads Confirmed by DR. Yareli ACOSTA ([id number]) on 04/24/2019 3:17:11 PM Referred By: BETH Confirmed By:DR. Yareli ACOSTA
[2019-04-24] MEDS: Apixaban 5 MG TAB PO SCH (20:18)
[2019-04-24] MEDS: Atorvastatin Calcium 40 MG TAB PO SCH (20:18)
[2019-04-24] MEDS: Lactinex Tablet PO SCH (20:18)
[2019-04-25] MEDS: Metoclopramide HCl 10 MG/2 ML VIAL IVP SCH (04:15)
[2019-04-25 04:43] LABS: #Eosinphils 0.4 thou/uL (0.0-0.7); #Lymphocytes 2.1 thou/uL (1.20-3.40); #Monocytes 1.4 thou/uL (0.11-0.59); #Neutrophils 5.8 thou/uL (1.40-6.50); %Basophils 0.3 % (0.0-1.0); %Eosinophils 3.7 % (0.0-10.0); %Lymphocytes 21.7 % (21.0-51.0); %Monocytes 14.6 % (0.0-10.0); %Neutrophils 59.6 % (42.0-75.0); Hemoglobin 10.3 g/dL (14.0-18.0); Mean Corpuscular HGB CONC 32.4 g/dL (32.0-36.0); Mean Corpuscular Hemoglobin 30.4 pg (27.0-31.0); Mean Corpuscular Volume 93.7 fL (78.0-98.0); Mean Platelet Volume 9.5 fL (7.4-10.4); Platelet Count 151 thou/uL (130-400); Red Blood Cell (RBC) Count 3.38 mill/uL (4.70-6.10); White Blood Cell (WBC) Count 9.7 thou/uL (4.8-10.8)
[2019-04-25 05:03] LABS: Anion Gap 12 mmol/L (10-20); BUN (Urea Nitrogen) 29 mg/dL (8.4-25.7); Calc. Creatinine Clearance 62 mL/min (70-130); Calcium 8.4 mg/dL (7.8-10.44); Carbon Dioxide 29 mmol/L (23-31); Chloride 101 mmol/L (98-107); Estimated GFR-MDRD 62; Glucose 142 mg/dL (83-110); Potassium 3.9 mmol/L (3.5-5.1); Sodium 138 mmol/L (136-145)
[2019-04-25] MEDS: Apixaban 5 MG TAB PO SCH ×3 (08:30→20:43)
[2019-04-25] MEDS: guaiFENesin ER 600 MG TAB PO SCH ×2 (08:30→20:42)
[2019-04-25] MEDS: Amiodarone 200 MG TAB PO SCH ×2 (08:31→20:43)
[2019-04-25] MEDS: Aspirin Chewable 81 MG TAB PO SCH (08:31)
[2019-04-25] MEDS: Docusate 100 MG CAP PO SCH ×2 (08:31→20:42)
[2019-04-25] MEDS: Multivitamin W/ Minerals 1 TAB PO SCH (08:31)
[2019-04-25] MEDS: HYDROcodone/Acetaminophen 5/325 mg Tablet PO PRN (08:36)
--- NOTE | 2019-04-25 16:24 | PDOC.CPN ---
- Subjective Date: 04/25/19 Time: 16:23 Interval history: He feels bloated, passing gas but no BM yet. He has been walking with PT. Overall he feels better. - Review of Systems General: denies: fever/chills, weight/appetite/sleep changes, night sweats, fatigue Respiratory: denies: cough, congestion, shortness of breath, exercise intolerance Cardiovascular: denies: chest pain, palpitation, edema, paroxysmal nocturnal dyspnea, orthopnea Gastrointestinal: reports: constipation. denies: nausea, vomiting, diarrhea, abd pain, GI bleeding Musculoskeletal: denies: pain, tenderness, stiffness, swelling, arthritis/ arthralgias Neurological: denies: numbness, syncope, seizure, weakness - Objective Allergies/Adverse Reactions: Allergies Allergy/AdvReac Type Severity Reaction Status Date / Time No Known Allergies Allergy Verified 04/20/19 15:43 Visit Medications: Current Medications Hydrocodone Bitart/Acetaminophen ([place] 5/325) 1 tab PO Q4H PRN PRN Reason: Moderate Pain (4-6) Hydrocodone Bitart/Acetaminophen ([place] 5/325) 2 tab PO Q4H PRN PRN Reason: Severe Pain (7-10) Last Admin: 04/25/19 08:36 Dose: 2 tab Acidophilus (Floranex) 1 tab PO [facility] Last Admin: 04/24/19 20:18 Dose: 1 tab Al Hydroxide/Mg Hydroxide (Maalox) 30 ml PO Q4H PRN PRN Reason: Indigestion Albuterol/Ipratropium (Duoneb) 3 ml NEB [id number] [facility] Last Admin: 04/25/19 13:35 Dose: 3 ml Amiodarone HCl (Cordarone) 200 mg PO BID [facility] Last Admin: 04/25/19 08:31 Dose: 200 mg Apixaban (Eliquis) 5 mg PO BID [facility] Last Admin: 04/25/19 09:39 Dose: Not Given Aspirin (Aspirin Chewable) 81 mg PO DAILY [facility] Last Admin: 04/25/19 08:31 Dose: 81 mg Atorvastatin Calcium (Lipitor) 40 mg PO HS [facility] Last Admin: 04/24/19 20:18 Dose: 40 mg Bisacodyl (Dulcolax) 10 mg PO Q12H PRN PRN Reason: Constipation Last Admin: 04/24/19 14:38 Dose: 10 mg Bisacodyl (Dulcolax) 10 mg ID Q12H PRN PRN Reason: Constipation Cholecalciferol (Vitamin D3) 3,000 units PO DAILY [facility] Last Admin: 04/25/19 08:31 Dose: 3,000 units Diltiazem HCl (Cardizem Cd) 120 mg PO DAILY [facility] Docusate Sodium (Colace) 100 mg PO BID [facility] Last Admin: 04/25/19 08:31 Dose: 100 mg Fentanyl (Sublimaze) 25 mcg SLOW IVP Q2H PRN PRN Reason: Moderate Pain (4-6) Fentanyl (Sublimaze) 50 mcg SLOW IVP Q2H PRN PRN Reason: Severe Pain (7-10) Last Admin: 04/22/19 23:05 Dose: 50 mcg Furosemide (Lasix) 40 mg PO DAILY[facility] Guaifenesin (Mucinex) 1,200 mg PO Q12HR [facility] Last Admin: 04/25/19 08:30 Dose: 1,200 mg Guaifenesin/Dextromethorphan (Robitussin Dm) 15 ml PO Q4H PRN PRN Reason: Cough Haloperidol Lactate (Haldol) 1 mg SLOW IVP Q6H PRN PRN Reason: Nausea Diltiazem HCl 125 mg/Miscellaneous Medication 1 each/ Sodium Chloride 125 mls @ 5 mls/hr IVPB INF [facility]; Protocol Last Admin: 04/23/19 23:50 Dose: 125 mls Iron/Minerals/Multivitamins (Theragran M) 1 tab PO DAILY [facility] Last Admin: 04/25/19 08:31 Dose: 1 tab Mineral Oil (Fleet Mineral Oil) 133 ml ID DAILYPRN PRN PRN Reason: Constipation Ondansetron HCl (Zofran) 4 mg IVP Q6H PRN PRN Reason: Nausea/Vomiting Last Admin: 04/23/19 15:44 Dose: 4 mg Pantoprazole Sodium (Protonix) 40 mg PO DAILY [facility] Last Admin: 04/25/19 08:31 Dose: 40 mg Sodium Chloride (Flush - Normal Saline) 10 ml IVF Q12HR [facility] Last Admin: 04/25/19 08:31 Dose: 10 ml Zolpidem Tartrate (Ambien) 5 mg PO HSPRN PRN PRN Reason: Insomnia Vital Signs & Weight: Vital Signs Temp Pulse Pulse Pulse Resp BP BP 04/25/19 13:35 85 16 04/25/19 12:38 119 H 95 147/70 H 126/74 04/25/19 11:00 98.5 F 96 17 04/25/19 10:03 102 H 88 139/77 126/74 04/25/19 08:00 97.2 F L 125 H 18 04/25/19 06:28 91 16 BP Pulse Ox 04/25/19 13:35 90 L 04/25/19 12:38 04/25/19 11:00 118/66 98 04/25/19 10:03 04/25/19 08:00 131/73 94 L 04/25/19 06:28 90 L Weight 180 lb 14.4 oz - Physical Exam General: alert & oriented x3 HEENT: mucus membranes moist Neck: supple neck Cardiac: regular rate and rhythm, no murmur Lungs: normal breath sounds Neuro: grossly intact Abdomen: active bowel sounds, non-tender Extremities: no edema Skin: clear Musculoskeletal: no pain - Labs Result Diagrams: 04/25/19 04:08 04/25/19 04:08 - Telemetry Supraventricular conduction: atrial fibrillation - Assessment/Plan Assessment/Plan: 1. Multivessel CAD 2. S/P CABG x 4 3. Chronic afib 4. PVD 5. Chornic dizziness. 6. Type 2 DM 7. Raynaud's Phenomenon PLAN: - Will wean dilt drip off. - ASA/statin for life. - Will add BB. - ACEI if BP allows. - PO diltiazem and BB for rate control - Eliquis for stroke prophylaxis. - Continue amiodarone for one month post op.
[2019-04-25] MEDS: Bisacodyl 5 MG TAB PO PRN (17:24)
[2019-04-25 17:52] VITALS: TEMP 97.9
[2019-04-25] MEDS: Lactinex Tablet PO SCH (20:41)
[2019-04-25] MEDS: Atorvastatin Calcium 40 MG TAB PO SCH (20:42)
[2019-04-26] MEDS ORDERED: Furosemide 40 MG TAB PO SCH (07:30)
[2019-04-26] MEDS: Multivitamin W/ Minerals 1 TAB PO SCH (08:48)
[2019-04-26] MEDS: Docusate 100 MG CAP PO SCH (08:48)
[2019-04-26] MEDS: guaiFENesin ER 600 MG TAB PO SCH (08:48)
[2019-04-26] MEDS: Apixaban 5 MG TAB PO SCH (08:49)
[2019-04-26] MEDS: Aspirin Chewable 81 MG TAB PO SCH (08:49)
[2019-04-26] MEDS: Amiodarone 200 MG TAB PO SCH (08:49)
[2019-04-26 12:00] VITALS: BP 149/91
--- NOTE | 2019-04-27 14:18 | DIS ---
DATE OF ADMISSION: 04/21/2019 DATE OF DISCHARGE: 04/26/2019 PRINCIPAL DIAGNOSIS: Coronary artery disease. SECONDARY DIAGNOSES: Chronic atrial fibrillation, type 2 diabetes mellitus, hypertension, and peripheral vascular disease. PROCEDURES PERFORMED: Coronary artery bypass grafting x4, left internal mammary artery to the mid left anterior descending, reverse greater saphenous vein graft from the aorta to the second diagonal to the posterolateral branch of the right coronary artery and to the patent ductus arteriosus on 04/21/2019. HISTORY OF PRESENT ILLNESS AND HOSPITAL COURSE: The patient is a 78-year-old diabetic man with chronic atrial fibrillation with long-standing complaints of dyspnea on exertion. His caregiver says that she has noticed that for about 2 years, has seemed inordinately short of breath after exertion. He denied any clear-cut anginal symptoms, but did admit frequent indigestion. Nuclear stress testing showed a large reversible defect in the inferior wall and cardiac catheterization demonstrated the equivalent of 3-vessel coronary disease. He had a diminutive circumflex system. The anterolateral wall supplied by large high diagonal in the posterolateral wall supplied by compromised posterolateral branch coming from the right coronary. He had serial LAD lesions and both branches of his right coronary were compromised. He underwent surgical revascularization, was extubated on the day of surgery in early on postoperative day 1, looked very good. Midmorning, however, his atrial fibrillation rate jumped up into the 130s and he got quite weak and diaphoretic. No hypotension was documented, but even after his rate was brought under better control with IV amiodarone and IV Cardizem, it was about another couple days before he was starting to really look good again. He was transferred out of the intensive care unit. He was switched from IV amiodarone to oral amiodarone. IV Cardizem was switched to oral Cardizem as he had been taking preoperatively and a beta-malcom was added. He was discharged home on postoperative day 5, doing well. Job ID: [id number]
== END 2019-04-26 14:15 | disposition home or self-care (01) | DRG 236 ==
LOC: SURG A 04-21 05:58 → CCU 04-21 09:20 → 2NO 04-24 13:33
PROVIDERS: ADMIT Thoracic Surgery (Cardiothoracic Vascular Surgery); ATTEND Thoracic Surgery (Cardiothoracic Vascular Surgery)
PROC: 02100Z9 Bypass Coronary Artery, One Artery from Left Internal Mammary, Open Approach (ICD-10-PCS; principal; 2019-04-21)
PROC: 021209W Bypass Coronary Artery, Three Arteries from Aorta with Autologous Venous Tissue, Open Approach (ICD-10-PCS; 2019-04-21)
PROC: 06BQ4ZZ Excision of Left Saphenous Vein, Percutaneous Endoscopic Approach (ICD-10-PCS; 2019-04-21)
PROC: 5A1221Z Performance of Cardiac Output, Continuous (ICD-10-PCS; 2019-04-21)
DX: I25.10 Atherosclerotic heart disease of native coronary artery without angina pectoris (principal); I48.20 Chronic atrial fibrillation, unspecified; E11.9 Type 2 diabetes mellitus without complications; I65.23 Occlusion and stenosis of bilateral carotid arteries; I73.9 Peripheral vascular disease, unspecified; I73.00 Raynaud's syndrome without gangrene; Z79.02 Long term (current) use of antithrombotics/antiplatelets; Z79.84 Long term (current) use of oral hypoglycemic drugs
CPT/HCPCS: 36415; 36416; 36430; 71045; 71046; 80048; 82805; 85025; 85027; 85610; 85730; 86850; 86900; 86901; 93005; 93010; 93798; 94002; 94640; J0282; J0690; J1642; J1644; J1815; J1940; J2001; J2250; J2270; J2370; J2405; J2440; J2550; J2704; J2720; J2765; J3010; J3370; J3475; J3480; J3490; J7070; J7620; P9045; S0017

== ENCOUNTER 2019-05-14 11:24 | Outpatient (CLI) | payer MEDICARE, BC ==
--- NOTE | 2019-05-14 11:44 | RAD ---
RADIOGRAPH CHEST 2 VIEW: DATE: 05/14/2019 HISTORY: 79-year-old male with hypertension and abnormal laboratory values. FINDINGS: There is no airspace density, pulmonary edema, pleural effusion, or pneumothorax. Cardiac size at upp er limits of normal. Signs of previous CABG. IMPRESSION: 1. No acute pulmonary findings. 2. Evidence of coronary atherosclerotic disease.
== END 2019-05-14 11:25 | disposition home or self-care (01) ==
LOC: RAD-FRANK 11:24
PROVIDERS: ATTEND Nurse Practitioner Family
DX: I10 Essential (primary) hypertension (principal); R89.9 Unspecified abnormal finding in specimens from other organs, systems and tissues; R42 Dizziness and giddiness; I25.10 Atherosclerotic heart disease of native coronary artery without angina pectoris; Z95.1 Presence of aortocoronary bypass graft
CPT/HCPCS: 71046; 87086

== ENCOUNTER 2020-10-25 07:45 | Outpatient (CLI) | payer MEDICARE, BC | END 2020-10-25 07:46 | disposition home or self-care (01) | LOC: BICULT 07:45 | PROVIDERS: ATTEND Internal Medicine Nephrology | DX: N18.30 Chronic kidney disease, stage 3 unspecified (principal); N32.89 Other specified disorders of bladder; N28.89 Other specified disorders of kidney and ureter; R93.421 Abnormal radiologic findings on diagnostic imaging of right kidney; R93.422 Abnormal radiologic findings on diagnostic imaging of left kidney | CPT/HCPCS: 76770; 93975 ==

== ENCOUNTER 2020-12-16 05:42 | Day surgery (SDC) | payer MEDICARE, BC ==
[2020-12-15 10:10] VITALS: BMI 24.3
[2020-12-16 07:03] LABS: Cardiac Risk 3.4 (Less than 4.5)
[2020-12-16] MEDS ORDERED: Midazolam HCl 2 mg/2 ml Vial ONE ×2 (08:00→08:53)
[2020-12-16] MEDS ORDERED: Fentanyl 100 MCG/2 ML VIAL ONE ×2 (08:00→08:53)
[2020-12-16] MEDS ORDERED: hydrALAZINE 20 MG/ML VIAL ONE (08:35)
[2020-12-16] MEDS ORDERED: Lidocaine 1% (PF) 30 ML VIAL ONE (08:54)
== END 2020-12-16 11:27 | disposition home or self-care (01) ==
LOC: CCL 05:42
PROVIDERS: ATTEND Internal Medicine Cardiovascular Disease
PROC: 4A023N7 Measurement of Cardiac Sampling and Pressure, Left Heart, Percutaneous Approach (ICD-10-PCS; principal; 2020-12-16)
PROC: B2111ZZ Fluoroscopy of Multiple Coronary Arteries using Low Osmolar Contrast (ICD-10-PCS; 2020-12-16)
PROC: B2181ZZ Fluoroscopy of Left Internal Mammary Bypass Graft using Low Osmolar Contrast (ICD-10-PCS; 2020-12-16)
PROC: B2131ZZ Fluoroscopy of Multiple Coronary Artery Bypass Grafts using Low Osmolar Contrast (ICD-10-PCS; 2020-12-16)
DX: I25.119 Atherosclerotic heart disease of native coronary artery with unspecified angina pectoris (principal); I10 Essential (primary) hypertension; I48.20 Chronic atrial fibrillation, unspecified; E11.51 Type 2 diabetes mellitus with diabetic peripheral angiopathy without gangrene; I65.23 Occlusion and stenosis of bilateral carotid arteries; I73.00 Raynaud's syndrome without gangrene; I35.8 Other nonrheumatic aortic valve disorders; Z79.01 Long term (current) use of anticoagulants; Z79.82 Long term (current) use of aspirin; Z79.84 Long term (current) use of oral hypoglycemic drugs; Z79.899 Other long term (current) drug therapy; Z95.1 Presence of aortocoronary bypass graft
CPT/HCPCS: 36415; 80061; 93455; 99152; 99153; J0360; J2001; J2250; J3010

== ENCOUNTER 2021-03-20 07:42 | Emergency (ER) | payer MEDICARE, BC ==
[2021-03-20 08:12] LABS: Bacteria/HPF None Seen HPF (None Seen); Bilirubin Negative (Negative); Blood, Urine 3+ (Negative); Clarity Turbid (Clear); Glucose, Urine (Dipstick) 70 mg/dL (Negative); Ketone, Urine 20 mg/dL (Negative); Leukocyte Negative Leu/uL (Negative); Nitrite Negative (Negative); Protein, Urine (Dipstick) 50 mg/dL (Neg-Trace); RBC/HPF Greater than 50 HPF (0-3); Specific Gravity, Urine 1.019 (1.002-1.036); Squamous Epithelial 0-3 HPF (0-3); Urobilinogen Normal mg/dL (Less than 2); pH, Urine 6.5 (5.0-9.0)
[2021-03-20 08:50] LABS: ALT (SGPT) 13 U/L (8-55); AST (SGOT) 18 U/L (5-34); Albumin 4.3 g/dL (3.4-4.8); Alkaline Phosphatase 66 U/L (40-110); Anion Gap 14 mmol/L (10-20); BUN (Urea Nitrogen) 32 mg/dL (8.4-25.7); Bilirubin, Total 0.9 mg/dL (0.2-1.2); Calc. Creatinine Clearance 0 mL/min (70-130); Calcium 9.9 mg/dL (7.8-10.44); Carbon Dioxide 26 mmol/L (23-31); Chloride 108 mmol/L (98-107); Globulin 2.6 g/dL (2.4-3.5); Glucose 164 mg/dL (83-110); Potassium 4.3 mmol/L (3.5-5.1); Protein, Total 6.9 g/dL (5.8-8.1); Sodium 144 mmol/L (136-145)
[2021-03-20 09:04] LABS: #Basophils 0.1 thou/uL (0.0-0.2); #Eosinphils 0.2 thou/uL (0.0-0.7); #Lymphocytes 1.2 thou/uL (1.20-3.40); #Monocytes 0.9 thou/uL (0.11-0.59); #Neutrophils 8.8 thou/uL (1.40-6.50); %Basophils 0.5 % (0.0-1.0); %Eosinophils 2.1 % (0.0-10.0); %Monocytes 8.1 % (0.0-10.0); %Neutrophils 78.4 % (42.0-75.0); Hemoglobin 14.5 g/dL (14.0-18.0); Mean Corpuscular HGB CONC 31.9 g/dL (32.0-36.0); Mean Corpuscular Hemoglobin 29.6 pg (27.0-31.0); Mean Platelet Volume 9.2 fL (7.4-10.4); Platelet Count 153 thou/uL (130-400); RBC Distribution Width 11.8 % (11.5-14.5); Red Blood Cell (RBC) Count 4.88 mill/uL (4.70-6.10); White Blood Cell (WBC) Count 11.2 thou/uL (4.8-10.8)
== END 2021-03-20 10:25 | disposition home or self-care (01) ==
LOC: ERS 07:42
DX: N20.0 Calculus of kidney (principal); N17.9 Acute kidney failure, unspecified; D72.829 Elevated white blood cell count, unspecified; I10 Essential (primary) hypertension; E11.9 Type 2 diabetes mellitus without complications; E78.00 Pure hypercholesterolemia, unspecified; Z79.01 Long term (current) use of anticoagulants; Z79.899 Other long term (current) drug therapy
CPT/HCPCS: 36415; 74176; 80053; 81003; 81015; 85025; 87086

== ENCOUNTER 2021-11-10 12:59 | Outpatient (CLI) | payer MEDICARE, BC | END 2021-11-10 13:00 | disposition home or self-care (01) | LOC: BICCT 12:59 | PROVIDERS: ATTEND Physician Assistant | DX: H60.62 Unspecified chronic otitis externa, left ear (principal); Q16.3 Congenital malformation of ear ossicles; Z98.890 Other specified postprocedural states | CPT/HCPCS: 70480 ==

== ENCOUNTER 2022-01-31 07:07 | Outpatient (CLI) | payer MEDICARE, BC ==
[2022-01-31] MEDS ORDERED: Iopamidol-370 76% 500 ML 1 ML ONE (10:23)
== END 2022-01-31 07:08 | disposition home or self-care (01) ==
LOC: BICCT 07:07
PROVIDERS: ATTEND Nurse Practitioner Family
DX: I65.23 Occlusion and stenosis of bilateral carotid arteries (principal); E11.65 Type 2 diabetes mellitus with hyperglycemia; I11.9 Hypertensive heart disease without heart failure; R63.4 Abnormal weight loss; R30.0 Dysuria; R89.9 Unspecified abnormal finding in specimens from other organs, systems and tissues; E78.2 Mixed hyperlipidemia; H91.90 Unspecified hearing loss, unspecified ear; I73.9 Peripheral vascular disease, unspecified; N40.0 Benign prostatic hyperplasia without lower urinary tract symptoms; E87.6 Hypokalemia; R42 Dizziness and giddiness; R63.0 Anorexia; Z71.1 Person with feared health complaint in whom no diagnosis is made; J98.4 Other disorders of lung; I70.90 Unspecified atherosclerosis; K44.9 Diaphragmatic hernia without obstruction or gangrene; K57.10 Diverticulosis of small intestine without perforation or abscess without bleeding; Z95.1 Presence of aortocoronary bypass graft
CPT/HCPCS: 71260; 74178; Q9967

== ENCOUNTER 2023-02-14 07:12 | Emergency (ER) | payer MEDICARE, BC ==
[2023-02-14 07:34] LABS: #Basophils 0.1 thou/uL (0.0-0.2); #Eosinphils 0.4 thou/uL (0.0-0.7); #Monocytes 1.2 thou/uL (0.11-0.59); #Neutrophils 4.9 thou/uL (1.40-6.50); %Basophils 0.6 % (0.0-1.0); %Eosinophils 4.8 % (0.0-10.0); %Lymphocytes 27.2 % (21.0-51.0); %Monocytes 13.3 % (0.0-10.0); %Neutrophils 53.7 % (42.0-75.0); Hematocrit 41.4 % (42.0-52.0); Hemoglobin 13.4 g/dL (14.0-18.0); Mean Corpuscular HGB CONC 32.4 g/dL (32.0-36.0); Mean Corpuscular Hemoglobin 30.2 pg (27.0-31.0); Mean Corpuscular Volume 93.2 fl (78.0-98.0); Mean Platelet Volume 11.1 fL (7.4-10.4); Platelet Count 184 10x3/uL (130-400); RBC Distribution Width 13.1 % (11.5-14.5); Red Blood Cell (RBC) Count 4.44 mill/uL (4.70-6.10)
[2023-02-14 07:57] LABS: ALT (SGPT) 12 U/L (8-55); AST (SGOT) 15 U/L (5-34); Albumin 4.8 g/dL (3.4-4.8); Alkaline Phosphatase 67 U/L (40-110); Anion Gap 13 mmol/L (10-20); BUN (Urea Nitrogen) 26 mg/dL (8.4-25.7); Bilirubin, Total 0.5 mg/dL (0.2-1.2); Calc. Creatinine Clearance 0 mL/min (70-130); Calcium 10.4 mg/dL (7.8-10.44); Carbon Dioxide 29 mmol/L (23-31); Chloride 105 mmol/L (98-107); Estimated GFR 46; Globulin 2.2 g/dL (2.4-3.5); Glucose 121 mg/dL (83-110); Potassium 5.1 mmol/L (3.5-5.1); Sodium 142 mmol/L (136-145)
== END 2023-02-14 08:20 | disposition home or self-care (01) ==
LOC: ERS 07:12
DX: E87.5 Hyperkalemia (principal); I12.9 Hypertensive chronic kidney disease with stage 1 through stage 4 chronic kidney disease, or unspecified chronic kidney disease; N18.2 Chronic kidney disease, stage 2 (mild); E11.22 Type 2 diabetes mellitus with diabetic chronic kidney disease; I48.91 Unspecified atrial fibrillation; E78.00 Pure hypercholesterolemia, unspecified
CPT/HCPCS: 36415; 80053; 85025; 93005

== ENCOUNTER 2024-01-09 08:23 | Outpatient (CLI) | payer MEDICARE, BC | END 2024-01-09 08:24 | disposition home or self-care (01) | LOC: ULT 08:23 | PROVIDERS: ATTEND Internal Medicine Nephrology | DX: I12.9 Hypertensive chronic kidney disease with stage 1 through stage 4 chronic kidney disease, or unspecified chronic kidney disease (principal); N18.30 Chronic kidney disease, stage 3 unspecified | CPT/HCPCS: 76770; 93975 ==

== ENCOUNTER 2024-10-14 09:26 | Outpatient (CLI) | payer MEDICARE, BC | END 2024-10-14 09:27 | disposition home or self-care (01) | LOC: BICRAD 09:26 | PROVIDERS: ATTEND Nurse Practitioner Family | DX: S91.301A Unspecified open wound, right foot, initial encounter (principal) ==

== ENCOUNTER 2024-12-31 11:52 | Inpatient (IN) | payer MEDICARE, BC ==
[2024-12-31 14:14] LABS: #Basophils 0.07 10x3/uL (0.0-0.2); #Eosinophils 0.89 10x3/uL (0.0-0.7); #Monocytes 1.41 10x3/uL (0.11-0.59); #Neutrophils 6.19 10x3/uL (1.40-6.50); %Basophils 0.6 % (0.0-1.0); %Eosinophils 8.1 % (0.0-10.0); %Lymphocytes 21.8 % (21.0-51.0); %Monocytes 12.8 % (0.0-10.0); %Neutrophils 56.2 % (42.0-75.0); Hematocrit 32.9 % (42.0-52.0); Hemoglobin 10.3 g/dL (14.0-18.0); Mean Corpuscular Hemoglobin 29.5 pg (27.0-31.0); Mean Corpuscular Volume 94.3 fL (78.0-98.0); Platelet Count 198 10x3/uL (130-400); Red Blood Cell (RBC) Count 3.49 mill/uL (4.70-6.10); White Blood Cell (WBC) Count 11.03 10x3/uL (4.8-10.8)
[2024-12-31 14:32] LABS: ALT (SGPT) 12 U/L (Less than 45); AST (SGOT) 19 U/L (11-34); Albumin 3.7 g/dL (3.1-4.5); Alkaline Phosphatase 70 U/L (40-110); Anion Gap 16 mmol/L (10-20); BUN (Urea Nitrogen) 42 mg/dL (8.4-25.7); Bilirubin, Total 0.4 mg/dL (0.3-1.2); Calc. Creatinine Clearance 0 mL/min (70-130); Calcium 9.5 mg/dL (7.8-10.44); Carbon Dioxide 22 mmol/L (23-31); Chloride 111 mmol/L (98-107); Globulin 2.9 g/dL (2.4-3.5); Glucose 85 mg/dL (83-110); Potassium 4.9 mmol/L (3.5-5.1); Sodium 144 mmol/L (136-145)
[2024-12-31] MEDS ORDERED: Dextrose 50% Abboject 50 ML SYRINGE SLOW IVP PRN (17:21)
[2024-12-31] MEDS ORDERED: Acetaminophen 325 MG TAB PO PRN (17:21)
[2024-12-31] MEDS ORDERED: Ondansetron PF 4 MG/2 ML Vial IVP PRN (17:21)
[2024-12-31] MEDS ORDERED: Melatonin 3 MG TAB PO PRN (17:21)
[2024-12-31] MEDS ORDERED: Glucagon 1 MG/ML KIT IM PRN (17:21)
[2024-12-31] MEDS ORDERED: Senokot S 8.6-50 MG TAB PO PRN (17:21)
[2024-12-31 18:31] LABS: Potassium, Urine 18.9 mmol/L; Sodium, Urine 101.0 mmol/L (Not Available)
[2024-12-31 18:31] LABS: Iron 56 ug/dL (65-175); Iron Binding Capacity, Total 223 mcg/dL (261-462); Magnesium 1.9 mg/dL (1.6-2.6)
[2024-12-31] MEDS: Carvedilol 6.25 MG TAB PO SCH (20:54)
[2024-12-31] MEDS: Amoxicillin/Potassium Clav 500 MG TAB PO SCH (20:54)
[2024-12-31] MEDS: Apixaban 2.5 MG TAB PO SCH (20:55)
[2025-01-01 06:23] LABS: #Basophils 0.06 10x3/uL (0.0-0.2); #Eosinophils 0.68 10x3/uL (0.0-0.7); #Monocytes 1.46 10x3/uL (0.11-0.59); #Neutrophils 5.88 10x3/uL (1.40-6.50); %Basophils 0.6 % (0.0-1.0); %Eosinophils 6.7 % (0.0-10.0); %Lymphocytes 19.8 % (21.0-51.0); %Monocytes 14.4 % (0.0-10.0); %Neutrophils 58.1 % (42.0-75.0); Hematocrit 30.5 % (42.0-52.0); Hemoglobin 9.6 g/dL (14.0-18.0); Mean Corpuscular Hemoglobin 29.9 pg (27.0-31.0); Mean Corpuscular Volume 95.0 fL (78.0-98.0); Platelet Count 181 10x3/uL (130-400); Red Blood Cell (RBC) Count 3.21 mill/uL (4.70-6.10); White Blood Cell (WBC) Count 10.13 10x3/uL (4.8-10.8)
[2025-01-01 06:39] LABS: Anion Gap 15 mmol/L (10-20); BUN (Urea Nitrogen) 44 mg/dL (8.4-25.7); Calc. Creatinine Clearance 18 mL/min (70-130); Calcium 8.9 mg/dL (7.8-10.44); Carbon Dioxide 23 mmol/L (23-31); Chloride 113 mmol/L (98-107); Glucose 101 mg/dL (83-110); Potassium 4.8 mmol/L (3.5-5.1); Sodium 146 mmol/L (136-145)
[2025-01-01] MEDS: EPOETIN ALFA-EPBX (ESRD) 10,000 UNITS/ML VIAL SC SCH (14:16)
[2025-01-01 18:13] VITALS: BMI 20.9
[2025-01-01 18:56] LABS: Albumin 3.4 g/dL (3.1-4.5); Anion Gap 15 mmol/L (10-20); BUN (Urea Nitrogen) 40 mg/dL (8.4-25.7); BUN/Creatinine Ratio 14.08; Calc. Creatinine Clearance 18 mL/min (70-130); Calcium 9.1 mg/dL (7.8-10.44); Carbon Dioxide 26 mmol/L (23-31); Chloride 109 mmol/L (98-107); Glucose 145 mg/dL (83-110); Potassium 5.4 mmol/L (3.5-5.1); Sodium 145 mmol/L (136-145)
[2025-01-01] MEDS: LOKELMA 10 GM PACKET PO SCH (22:20)
[2025-01-02 06:43] LABS: #Basophils 0.05 10x3/uL (0.0-0.2); #Eosinophils 0.84 10x3/uL (0.0-0.7); #Monocytes 1.46 10x3/uL (0.11-0.59); #Neutrophils 5.86 10x3/uL (1.40-6.50); %Basophils 0.5 % (0.0-1.0); %Eosinophils 8.3 % (0.0-10.0); %Lymphocytes 18.5 % (21.0-51.0); %Monocytes 14.4 % (0.0-10.0); %Neutrophils 58.0 % (42.0-75.0); Hematocrit 31.6 % (42.0-52.0); Hemoglobin 9.8 g/dL (14.0-18.0); Mean Corpuscular Hemoglobin 29.1 pg (27.0-31.0); Mean Corpuscular Volume 93.8 fL (78.0-98.0); Platelet Count 181 10x3/uL (130-400); Red Blood Cell (RBC) Count 3.37 mill/uL (4.70-6.10); White Blood Cell (WBC) Count 10.11 10x3/uL (4.8-10.8)
[2025-01-02 07:02] LABS: Albumin 3.3 g/dL (3.1-4.5); Anion Gap 13 mmol/L (10-20); BUN (Urea Nitrogen) 36 mg/dL (8.4-25.7); BUN/Creatinine Ratio 12.81; Calc. Creatinine Clearance 19 mL/min (70-130); Calcium 8.9 mg/dL (7.8-10.44); Carbon Dioxide 28 mmol/L (23-31); Chloride 105 mmol/L (98-107); Glucose 126 mg/dL (83-110); Potassium 4.6 mmol/L (3.5-5.1); Sodium 141 mmol/L (136-145)
[2025-01-02] MEDS: BuPROPion XL 150 MG ER.TAB PO SCH (08:44)
[2025-01-02] MEDS: NIFEdipine XL 60 MG ER.TAB PO SCH (12:54)
[2025-01-02] MEDS: Albumin 25% 25 GM (100 mL) BOT IVPB SCH (14:22)
[2025-01-02] MEDS: Calcium Carbonate 500 MG ChewTAB PO PRN (20:20)
[2025-01-03 05:59] LABS: #Basophils 0.04 10x3/uL (0.0-0.2); #Eosinophils 0.71 10x3/uL (0.0-0.7); #Monocytes 1.99 10x3/uL (0.11-0.59); #Neutrophils 8.01 10x3/uL (1.40-6.50); %Basophils 0.3 % (0.0-1.0); %Eosinophils 5.4 % (0.0-10.0); %Lymphocytes 18.4 % (21.0-51.0); %Monocytes 15.0 % (0.0-10.0); %Neutrophils 60.4 % (42.0-75.0); Hematocrit 28.4 % (42.0-52.0); Hemoglobin 9.0 g/dL (14.0-18.0); Mean Corpuscular Hemoglobin 29.9 pg (27.0-31.0); Mean Corpuscular Volume 94.4 fL (78.0-98.0); Platelet Count 179 10x3/uL (130-400); Red Blood Cell (RBC) Count 3.01 mill/uL (4.70-6.10); White Blood Cell (WBC) Count 13.26 10x3/uL (4.8-10.8)
[2025-01-03 06:28] LABS: Anion Gap 20 mmol/L (10-20); BUN (Urea Nitrogen) 36 mg/dL (8.4-25.7); Calc. Creatinine Clearance 17 mL/min (70-130); Calcium 8.8 mg/dL (7.8-10.44); Carbon Dioxide 27 mmol/L (23-31); Chloride 101 mmol/L (98-107); Glucose 139 mg/dL (83-110); Potassium 4.2 mmol/L (3.5-5.1); Sodium 144 mmol/L (136-145)
[2025-01-03] MEDS: Sodium Bicarbonate Tab 325 MG TAB PO SCH (08:21)
[2025-01-03] MEDS: NIFEdipine XL 60 MG ER.TAB PO SCH (08:21)
[2025-01-03 12:25] VITALS: BP 115/62; TEMP 97.6
== END 2025-01-03 12:36 | disposition home or self-care (01) | DRG 683 ==
LOC: ERS 11:52 → T4-A 15:30 → OBSVTOIN 01-01 17:15
PROVIDERS: ADMIT Internal Medicine; ATTEND Hospitalist
PROC: 3E03329 Introduction of Other Anti-infective into Peripheral Vein, Percutaneous Approach (ICD-10-PCS; principal; 2024-12-31)
PROC: 30233J1 Transfusion of Nonautologous Serum Albumin into Peripheral Vein, Percutaneous Approach (ICD-10-PCS; 2025-01-02)
DX: N17.9 Acute kidney failure, unspecified (principal); E87.0 Hyperosmolality and hypernatremia; E87.21 Acute metabolic acidosis; I48.20 Chronic atrial fibrillation, unspecified; D64.9 Anemia, unspecified; I25.10 Atherosclerotic heart disease of native coronary artery without angina pectoris; E78.5 Hyperlipidemia, unspecified; E11.51 Type 2 diabetes mellitus with diabetic peripheral angiopathy without gangrene; Z79.899 Other long term (current) drug therapy; I12.9 Hypertensive chronic kidney disease with stage 1 through stage 4 chronic kidney disease, or unspecified chronic kidney disease; G47.33 Obstructive sleep apnea (adult) (pediatric); Z98.890 Other specified postprocedural states; Z95.1 Presence of aortocoronary bypass graft; N18.4 Chronic kidney disease, stage 4 (severe); E87.5 Hyperkalemia; N40.1 Benign prostatic hyperplasia with lower urinary tract symptoms; Z79.82 Long term (current) use of aspirin
CPT/HCPCS: 36415; 36416; 51798; 76770; 80048; 80053; 80069; 81001; 82040; 82043; 82436; 82550; 82728; 83013; 83036; 83540; 83550; 83735; 83880; 84100; 84133; 84153; 84156; 84300; 84443; 85025; 96360; 96372; 96374; 97139; A4217; G0378; J1815; J7120; P9047; Q5105

== ENCOUNTER 2025-03-15 10:08 | Outpatient (CLI) | payer MEDICARE, BC | END 2025-03-15 10:09 | disposition home or self-care (01) | LOC: ULT 10:08 | PROVIDERS: ATTEND Internal Medicine Nephrology | DX: N17.9 Acute kidney failure, unspecified (principal); N40.1 Benign prostatic hyperplasia with lower urinary tract symptoms; R33.9 Retention of urine, unspecified | CPT/HCPCS: 76770 ==

== ENCOUNTER 2025-04-06 16:27 | Emergency (ER) | payer MEDICARE, BC ==
[2025-04-06 17:34] LABS: %Lymphocytes 18.3 % (21.0-51.0); %Monocytes 13.8 % (0.0-10.0); %Neutrophils 60.2 % (42.0-75.0); Hematocrit 32.2 % (42.0-52.0); Hemoglobin 10.0 g/dL (14.0-18.0); Mean Corpuscular Hemoglobin 28.7 pg (27.0-31.0); Mean Corpuscular Volume 92.5 fL (78.0-98.0); Platelet Count 262 10x3/uL (130-400); Red Blood Cell (RBC) Count 3.48 mill/uL (4.70-6.10); White Blood Cell (WBC) Count 10.33 10x3/uL (4.8-10.8)
[2025-04-06 17:35] LABS: #Basophils 0.07 10x3/uL (0.0-0.2); #Eosinophils 0.62 10x3/uL (0.0-0.7); #Monocytes 1.43 10x3/uL (0.11-0.59); #Neutrophils 6.22 10x3/uL (1.40-6.50); %Basophils 0.7 % (0.0-1.0); %Eosinophils 6.0 % (0.0-10.0)
[2025-04-06 17:57] LABS: ALT (SGPT) 16 U/L (Less than 45); AST (SGOT) 23 U/L (11-34); Albumin 3.5 g/dL (3.1-4.5); Alkaline Phosphatase 67 U/L (40-110); Anion Gap 18 mmol/L (10-20); BUN (Urea Nitrogen) 39 mg/dL (8.4-25.7); Bilirubin, Total 0.2 mg/dL (0.3-1.2); Calc. Creatinine Clearance 0 mL/min (70-130); Calcium 9.0 mg/dL (7.8-10.44); Carbon Dioxide 22 mmol/L (23-31); Chloride 112 mmol/L (98-107); Globulin 3.0 g/dL (2.4-3.5); Glucose 103 mg/dL (83-110); Potassium 5.0 mmol/L (3.5-5.1); Sodium 147 mmol/L (136-145)
== END 2025-04-06 19:06 | disposition home or self-care (01) ==
LOC: ERS 16:27
DX: E11.22 Type 2 diabetes mellitus with diabetic chronic kidney disease (principal); I12.9 Hypertensive chronic kidney disease with stage 1 through stage 4 chronic kidney disease, or unspecified chronic kidney disease; N18.9 Chronic kidney disease, unspecified
CPT/HCPCS: 36415; 71045; 80053; 83880; 84484; 85025; 93005; 94760